=== PATIENT | male | born 1945 | race Caucasian/White ===

== ENCOUNTER → 2017-09-10 | Outpatient (CLI) | payer MEDICARE, OTHER ==
[~2017-09-10] MED LIST: ACE500 PO; ACET-2146 PO; ACET500L35 PO; ALL100 PO; ASC500 PO; ASCO-182 PO; ASCO500C9 PO; ASPI-1441 PO; ASPI-715 PO; CA C1TAB85 PO; CELE-1 PO; CETI-169 PO; CHOL200022 PO; DOC100 PO; DOCU-416 PO; FERR-1 PO; FLUT16SP20 NS; GLUC-129 PO; GLUC-198 PO; GLUC100026 PO; HCTZ25 PO; LISI-1 PO; LOR5/325 PO; LOR7.5/325 PO; LORA-941 PO; LORA10TA2 PO; LOSA50TA72 PO; MOD PO; MULT-1 PO; OMEG-11 PO; ONDA4TAB97 PO; OXYC-865 PO; PAN40 PO; PER PO; POTA10CA61 PO; POTA99TA12 PO; PRO25 PO; PYRI100T57 PO; RAN150 PO; TAM4 PO; VIT B6 PO; VITE400 PO; [UNRECOGNIZED DRUG - OTHER]; [UNRECOGNIZED DRUG - OTHER]
[2017-09-10 12:13] LABS: INR 2.97
== END ==
LOC: LAB 11:15
PROVIDERS: ATTEND Internal Medicine Cardiovascular Disease
DX: Z51.81 Encounter for therapeutic drug level monitoring (principal); I48.91 Unspecified atrial fibrillation
CPT/HCPCS: 36415; 85610

== ENCOUNTER → 2017-10-08 | Outpatient (CLI) | payer MEDICARE, OTHER ==
[2017-10-08 11:45] LABS: INR 2.47
== END ==
LOC: LAB 11:14
PROVIDERS: ATTEND Internal Medicine Cardiovascular Disease
DX: Z51.81 Encounter for therapeutic drug level monitoring (principal); Z79.01 Long term (current) use of anticoagulants; I48.0 Paroxysmal atrial fibrillation
CPT/HCPCS: 36415; 85610

== ENCOUNTER → 2017-10-23 | Outpatient (CLI) | payer MEDICARE, OTHER ==
[2017-10-23 10:47] LABS: INR 2.55
== END ==
LOC: LAB 10:04
PROVIDERS: ATTEND Internal Medicine Cardiovascular Disease
DX: Z51.81 Encounter for therapeutic drug level monitoring (principal); Z79.01 Long term (current) use of anticoagulants; I48.0 Paroxysmal atrial fibrillation
CPT/HCPCS: 36415; 85610

== ENCOUNTER → 2017-11-19 | Outpatient (CLI) | payer MEDICARE, OTHER ==
[2017-11-19 10:49] LABS: INR 3.33
== END ==
LOC: LAB 10:17
PROVIDERS: ATTEND Internal Medicine Cardiovascular Disease
DX: Z51.81 Encounter for therapeutic drug level monitoring (principal); Z79.01 Long term (current) use of anticoagulants; I48.0 Paroxysmal atrial fibrillation
CPT/HCPCS: 36415; 85610

== ENCOUNTER → 2017-12-03 | Outpatient (CLI) | payer MEDICARE, OTHER ==
[2017-12-03 14:45] LABS: INR 3.06
== END ==
LOC: LAB 14:19
PROVIDERS: ATTEND Internal Medicine Cardiovascular Disease
DX: Z51.81 Encounter for therapeutic drug level monitoring (principal); Z79.01 Long term (current) use of anticoagulants; I48.0 Paroxysmal atrial fibrillation
CPT/HCPCS: 36415; 85610

== ENCOUNTER → 2017-12-31 | Outpatient (CLI) | payer MEDICARE, OTHER ==
[2017-12-31 12:56] LABS: INR 3.08
== END ==
LOC: LAB 11:59
PROVIDERS: ATTEND Internal Medicine Cardiovascular Disease
DX: Z51.81 Encounter for therapeutic drug level monitoring (principal); Z79.01 Long term (current) use of anticoagulants; I48.91 Unspecified atrial fibrillation
CPT/HCPCS: 36415; 85610

== ENCOUNTER → 2018-01-21 | Outpatient (CLI) | payer MEDICARE, OTHER | LOC: LAB 12:59 | PROVIDERS: ATTEND Urology | DX: R97.20 Elevated prostate specific antigen [PSA] (principal) | CPT/HCPCS: 36415; 84153 ==

== ENCOUNTER → 2018-01-21 | Outpatient (CLI) | payer MEDICARE, OTHER ==
[2018-01-21 15:06] LABS: INR 2.88
== END ==
LOC: LAB 12:56
PROVIDERS: ATTEND Internal Medicine Cardiovascular Disease
DX: Z51.81 Encounter for therapeutic drug level monitoring (principal); Z79.01 Long term (current) use of anticoagulants; I48.91 Unspecified atrial fibrillation; R97.20 Elevated prostate specific antigen [PSA]
CPT/HCPCS: 36415; 84153; 85610

== ENCOUNTER → 2018-02-18 | Outpatient (CLI) | payer MEDICARE, OTHER ==
[2018-02-18 13:16] LABS: INR 2.08
== END ==
LOC: LAB 12:52
PROVIDERS: ATTEND Internal Medicine Cardiovascular Disease
DX: Z51.81 Encounter for therapeutic drug level monitoring (principal); Z79.01 Long term (current) use of anticoagulants; I48.0 Paroxysmal atrial fibrillation
CPT/HCPCS: 36415; 85610

== ENCOUNTER 2018-03-14 18:17 | Emergency (ER) | payer MEDICARE, OTHER ==
[2018-03-14] MEDS ORDERED: WARF5TAB23 PO (18:27)
--- NOTE | 2018-03-14 18:31 | ER Report ---
History and Physical Time Seen By MD: 18:30 Hx. of Stated Complaint: AFTER EATING STARTED HAVING CHEST PAIN, HEADACHE, BILAT JAW PAIN. TOOK ANTACIDS AT HOME WITH NO RELIEF. HPI/ROS CHIEF COMPLAINT: chest pain HISTORY OF PRESENT ILLNESS: This is a 72 year old male. He started having chest pain tonight. Substernal wtih radiation to jaw bilaterally. Had just finished eating out at a local [employer] restaurant. Took some antacids and belched, but only very mild relief. Had a splitting headache as well. He is on Warfarin for paroxysmal atrial fibrillation. His heart has been racing. He has seen a developer [employer] in the past and had a cardiac cath and stress test, but this was 17 years ago. Non-obstructive coronary artery disease at that time. He says that the pain has diminished a little more since coming to the hospital, but still present. He did have some nausea right after the pain started, but none now. Has mild shortness of breath with this. [place] fine prior to this, no recent illnesses. No cough or fevers. Allergies: Coded Allergies: Penicillins (Verified Allergy, Severe, ANAPHYLAXIS, 02/16/17) lisinopril (Verified Adverse Reaction, Intermediate, ?CAUSE OF PANCREATITIS, 02/16/17) Uncoded Allergies: hayfever (Allergy, Intermediate, UNKNOWN, 01/21/12) Home Meds Active Scripts Metoprolol Tartrate (METOPROLOL TARTRATE) 25 Mg Tablet, 12.5 MG PO BID, #30 TAB Prov:MARIE MCKAY MD 03/14/18 Reported Medications Warfarin Sodium (WARFARIN SODIUM) 5 Mg Tablet, 5 MG PO QDAY, TAB 03/14/18 Cholecalciferol (Vitamin D3) (Vitamin D-3) 2,000 Unit Tablet, 2000 UNIT PO BID 11/19/13 Amiloride/Hctz (AMILORIDE HCL-HCTZ 5-50 MG TAB) 1 Each Tab, 0.5 TAB PO QDAY, TAB 11/19/13 Losartan Potassium (LOSARTAN POTASSIUM) 50 Mg Tablet, 50 MG PO QDAY 11/19/13 Potassium Chloride (Micro-K) 10 Meq Capsule.sa, 20 MEQ PO DAILY, 0 Refills 07/30/11 Multivitamins W-Minerals/Lut (Centrum Silver Tablet) 1 Tab Tablet, 1 TAB PO DAILY, 0 Refills 07/30/11 Docosahexanoic Acid/Epa (Fish Oil 1,000 Mg Capsule) 1 Cap Capsule, 1 CAP PO DAILY, 0 Refills 07/30/11 Aspirin (Aspirin) 81 Mg Tablet.dr, 81 MG PO DAILY, 0 Refills 07/30/11 Fluticasone Propionate (Flonase) 16 Gm [place], 2 [place] NS DAILY, 0 Refills 07/30/11 Pantoprazole Sod (Protonix) 40 Mg Tabec, 40 MG PO QDAY, 0 Refills 07/30/11 Celecoxib (Celebrex) 200 Mg Capsule, 200 MG PO DAILY, 0 Refills 07/30/11 Allopurinol (Zyloprim) 100 Mg Tab, 300 MG PO DAILY, 0 Refills 07/30/11 Discontinued Reported Medications Acetaminophen 500 Mg Tab (ACETAMINOPHEN EXTRA STRENGTH) 500 Mg Tablet, 1000 MG PO QDAY, TAB 05/30/14 Glucosamine Sulfate 2KCL (GLUCOSAMINE) 1,000 Mg Tablet, 1000 MG PO QDAY 11/19/13 Cetirizine Hcl (Cetirizine Hcl) 10 Mg Tablet, 10 MG PO, 0 Refills 07/30/11 Discontinued Scripts Ondansetron Hcl (ZOFRAN) 4 Mg Tablet, 4 MG PO Q8H for Nausea, #12 TAB 0 Refills Prov:MAYURI ROBISON MD 08/18/16 Oxycodone Hcl/Acetaminophen (PERCOCET 5-325 MG TABLET) 1 Each Tablet, 1 EACH PO Q4-6H for PAIN, #10 TAB 0 Refills Prov:MAYURI ROBISON MD 08/18/16 Past Medical/Surgical History Patient has a past medical history of headaches, hypertension, obstructive sleep apnea, pneumonia, GERD, gastric ulcers, pancreatitis, kidney stones, osteoarthritis, fractures, back pain, actinic keratosis. Patient has a surgical history of eye surgery, back surgery, shoulder surgery, ESWL, cardiac catheterization. Hx Smoking: Yes Smoking Status: Former Smoker Exposure to Second Hand Smoke?: No Hx Substance Use Disorder: No Hx Alcohol Use: Yes Constitutional Vital Sign - Last 24 Hours 03/14/18 03/14/18 03/14/18 03/14/18 18:21 18:23 18:30 18:47 Pulse 105 110 Resp 18 19 B/P (MAP) 150/98 150/98 (115) 128/84 (99) Pulse Ox 92 88 O2 Delivery Room Air 03/14/18 03/14/18 03/14/18 03/14/18 19:00 19:17 19:30 19:47 Pulse 98 98 Resp 17 12 B/P (MAP) 130/94 (106) 115/78 (90) 03/14/18 03/14/18 03/14/18 03/14/18 20:00 20:05 20:15 20:30 Pulse 98 Resp 22 B/P (MAP) 112/73 (86) 116/79 (91) Pulse Ox 86 O2 Flow Rate 2.0 03/14/18 03/14/18 03/14/18 03/14/18 20:35 20:47 20:50 20:55 Pulse 96 Resp 6 B/P (MAP) 130/81 (97) 131/80 (97) 131/89 (103) Pulse Ox 93 03/14/18 03/14/18 03/14/18 03/14/18 20:58 21:00 21:05 21:20 Pulse 83 Resp 14 B/P (MAP) 116/81 (93) 112/82 (92) 114/79 (91) Pulse Ox 92 03/14/18 03/14/18 03/14/18 03/14/18 21:35 21:40 22:00 22:05 Pulse 81 78 Resp 18 9 B/P (MAP) 115/73 (87) 112/79 (90) Pulse Ox 91 92 03/14/18 03/14/18 03/14/18 03/14/18 22:20 22:35 22:40 22:50 Pulse 80 77 82 Resp 9 15 11 B/P (MAP) 109/76 (87) 115/81 (92) Pulse Ox 94 93 93 Physical Exam General Appearance: The patient is alert. No acute distress. Non-toxic in appearance. Eyes: Pupils are equal, round. No pallor, injection or icterus. ENT: Mucous membranes are moist. Normal oral mucosa. Posterior oropharynx is normal. Neck: Supple and non tender. Respiratory: Lungs are clear to auscultation. There are no retractions or accessory muscle use. Cardiovascular: Irregularly irregular, with some tachycardia. No murmurs, gallops or rubs. Normal capillary refill. No edema. Gastrointestinal: Abdomen is soft and non tender. Nondistended. Normal active bowel sounds. Neurological: Alert and oriented x3. No focal neurologic deficits Skin: Warm and dry. No rashes. DIFFERENTIAL DIAGNOSIS: After history and physical exam, differential diagnosis was considered for chest pain including but not limited to myocardial ischemia, pericarditis pulmonary embolus, chest wall pain, pleural inflammation and pulmonary infectious causes. Medical Decision Making Data Points Result Diagram: 03/14/18 18303/14/18 183 Laboratory Hematology Test 03/14/18 18:30 03/14/18 21:57 Red Blood Count 5.55 M/uL (4.00-5.60) Mean Corpuscular Volume 94.3 fL (80.0-96.0) Mean Corpuscular Hemoglobin 33.0 pg (26.0-33.0) Mean Corpuscular Hemoglobin Concent 35.0 g/dL (32.0-36.0) Red Cell Distribution Width 13.6 % (11.5-14.5) Mean Platelet Volume 9.9 fL (7.2-11.1) Neutrophils (%) (Auto) 54.6 % (39.4-72.5) Lymphocytes (%) (Auto) 28.7 % (17.6-49.6) Monocytes (%) (Auto) 12.6 % (4.1-12.4) Eosinophils (%) (Auto) 3.6 % (0.4-6.7) Basophils (%) (Auto) 0.5 % (0.3-1.4) Nucleated RBC Relative Count (auto) 0.1 /100WBC Neutrophils # (Auto) 4.6 K/uL (2.0-7.4) Lymphocytes # (Auto) 2.4 K/uL (1.3-3.6) Monocytes # (Auto) 1.1 K/uL (0.3-1.0) Eosinophils # (Auto) 0.3 K/uL (0.0-0.5) Basophils # (Auto) 0.0 K/uL (0.0-0.1) Nucleated RBC Absolute Count (auto) 0.01 K/uL Prothrombin Time 24.8 seconds (12.0-14.4) Prothromb Time International Ratio 2.19 D-Dimer Quantitative (PE/DVT) < 0.27 ug/ml (0-0.50) Sodium Level 141 mmol/L (137-145) Potassium Level 3.6 mmol/L (3.5-5.0) Chloride Level 104 mmol/L (98-107) Carbon Dioxide Level 22 mmol/L (22-30) Blood Urea Nitrogen 19 mg/dl (9-21) Creatinine 1.10 mg/dl (0.66-1.25) Glomerular Filtration Rate Calc > 60.0 Random Glucose 119 mg/dl (75-110) Calcium Level 10.6 mg/dl (8.4-10.2) Total Bilirubin 0.7 mg/dl (0.2-1.3) Aspartate Amino Transf (AST/SGOT) 49 U/L (0-35) Alanine Aminotransferase (ALT/SGPT) 47 U/L (0-56) Alkaline Phosphatase 98 U/L (0-126) B-Type Natriuretic Peptide 16 pg/ml (0-100) Total Protein 8.2 g/dl (6.3-8.2) Albumin 4.7 g/dl (3.5-5.0) Troponin I < 0.012 ng/ml Chemistry Test 03/14/18 18:30 03/14/18 21:57 White Blood Count 8.5 k/uL (4.5-11.0) Red Blood Count 5.55 M/uL (4.00-5.60) Hemoglobin 18.3 g/dL (14.0-18.0) Hematocrit 52.3 % (42.0-52.0) Mean Corpuscular Volume 94.3 fL (80.0-96.0) Mean Corpuscular Hemoglobin 33.0 pg (26.0-33.0) Mean Corpuscular Hemoglobin Concent 35.0 g/dL (32.0-36.0) Red Cell Distribution Width 13.6 % (11.5-14.5) Platelet Count 151 K/uL (150-450) Mean Platelet Volume 9.9 fL (7.2-11.1) Neutrophils (%) (Auto) 54.6 % (39.4-72.5) Lymphocytes (%) (Auto) 28.7 % (17.6-49.6) Monocytes (%) (Auto) 12.6 % (4.1-12.4) Eosinophils (%) (Auto) 3.6 % (0.4-6.7) Basophils (%) (Auto) 0.5 % (0.3-1.4) Nucleated RBC Relative Count (auto) 0.1 /100WBC Neutrophils # (Auto) 4.6 K/uL (2.0-7.4) Lymphocytes # (Auto) 2.4 K/uL (1.3-3.6) Monocytes # (Auto) 1.1 K/uL (0.3-1.0) Eosinophils # (Auto) 0.3 K/uL (0.0-0.5) Basophils # (Auto) 0.0 K/uL (0.0-0.1) Nucleated RBC Absolute Count (auto) 0.01 K/uL Prothrombin Time 24.8 seconds (12.0-14.4) Prothromb Time International Ratio 2.19 D-Dimer Quantitative (PE/DVT) < 0.27 ug/ml (0-0.50) Glomerular Filtration Rate Calc > 60.0 Calcium Level 10.6 mg/dl (8.4-10.2) Total Bilirubin 0.7 mg/dl (0.2-1.3) Aspartate Amino Transf (AST/SGOT) 49 U/L (0-35) Alanine Aminotransferase (ALT/SGPT) 47 U/L (0-56) Alkaline Phosphatase 98 U/L (0-126) B-Type Natriuretic Peptide 16 pg/ml (0-100) Total Protein 8.2 g/dl (6.3-8.2) Albumin 4.7 g/dl (3.5-5.0) Troponin I < 0.012 ng/ml Coagulation Test 03/14/18 18:30 Prothrombin Time 24.8 seconds Prothromb Time International Ratio 2.19 D-Dimer Quantitative (PE/DVT) < 0.27 ug/ml EKG/Imaging EKG Interpretation 12 lead EKG: At 1825 hrs. Rhythm: atrial fibrillation, rapid rate of 116 [place]: normal QRS: right bundle branch block ST segments: some depression of ST segments in V1-V3 12 lead EKG: At 2151 hrs. Rhythm: Sinus rhythm, normal, rate 80 [place]: normal QRS: Right bundle branch block ST segments: No ST segment L normalities Imaging Examination: CHEST PA AND LAT Comparison: 02/16/2017 and earlier. History: Chest Pain Findings: Cardiac and hilar contour size is within normal limits and unchanged. No new or enlarging consolidation, nodule, or evidence of acute peribronchial inflammation. No pneumothorax, edema, or effusion. Mild degenerative change throughout the osseous structures. No acute osseous abnormality. IMPRESSION: Unchanged chest with no evidence of acute cardiopulmonary disease. Report Dictated By: Sujit Sharpe MD at 03/14/2018 7:26 PM ED Course/Re-evaluation Clinical Indication for ER IV: IV Access ED Course The patient came down to a normal rhythm and a sinus rhythm after metoprolol was given. Aspirin helped a little bit with a headache. Gave him 2 mg of morphine IV later and helped his chest pain and headache. After the atrial fibrillation resolved, the chest pain went away. 2 troponins done 3 hours apart were negative. Discussed risks of coronary artery disease with the patient. At this point they would prefer to return home and follow up with their developer [employer], Dr. Louis, in the next week or so. Decision to Disposition Date: Mar 14, 2018 Decision to Disposition Time: 22:42 Depart Departure Latest Vital Signs Vital Signs Date Time Temp Pulse Resp B/P (MAP) Pulse Ox O2 Delivery O2 Flow Rate FiO2 03/14/18 22:50 82 11 93 03/14/18 22:40 115/81 (92) 03/14/18 20:15 2.0 03/14/18 18:21 Room Air Impression: Primary Impression: Chest pain Additional Impression: PAROXYSMAL ATRIAL FIBRILLATION Condition: Improved Disposition: HOME OR SELF-CARE Referrals: CALLUM FLEMING DO (PCP) New Scripts Metoprolol Tartrate (METOPROLOL TARTRATE) 25 Mg Tablet 12.5 MG PO BID, #30 TAB Prov: MARIE MCKAY MD 03/14/18 Patient Instructions: A-fib (Atrial Fibrillation) (ED), Chest Pain (ED) Additional Instructions: Your atrial fibrillation and pain improved and we did not find any other problems. Your labs were negative tonight as well. We would like to have you start on Metroprolol Tartrate 25mg tablets, 1/2 tablet twice a day for now and have you follow-up with Dr. Louis as planned. No heavy physical activity until you see him. Return to the ER for further evaluation should you have further pain. Problem Qualifiers Primary Impression: Chest pain Chest pain type: unspecified Qualified Codes: R07.9 - Chest pain, unspecified MARIE MCKAY MD Mar 14, 2018 18:31
[2018-03-14] MEDS ORDERED: ASPIRIN 81 MG CHEW PO ONE (18:45)
[2018-03-14] MEDS ORDERED: METOPROLOL TART 5 MG/5 ML VIAL IVP ONE (18:45)
[2018-03-14] MEDS ORDERED: PANTOPRAZOLE SOD 40 MG IV VIAL IVP ONE (18:45)
[2018-03-14] MEDS ORDERED: ONDANSETRON 4 MG/2 ML VIAL IVP ONE (18:45)
[2018-03-14 18:51] LABS: PLATELET COUNT, AUTOMATED 151 K/uL (150-450)
[2018-03-14 19:00] LABS: INR 2.19
--- NOTE | 2018-03-14 19:10 | EKG ---
[place] [facility] [place] NAME: Coleen CABRAL : [id number] MR: [id number] V: [id number] EXAM DATE: ORDERING PHYSICIAN: MARIE MCKAY TECHNOLOGIST: Test Reason : chest pain Blood Pressure : / mmHG Vent. Rate : 116 BPM Atrial Rate : 116 BPM P-R Int : 000 ms QRS Dur : 134 ms QT Int : 324 ms P-R-T Axes : 000 107 038 degrees QTc Int : 450 ms Atrial fibrillation with rapid ventricular response Right bundle branch block Cannot rule out Inferior infarct , age undetermined Abnormal ECG When compared with ECG of 16-FEB-2017 18:15, Atrial fibrillation has replaced Wide QRS rhythm Confirmed by SAMARA PEREZ ([id number]) on 03/14/2018 9:23:52 PM Referred By: Confirmed By:SAMARA PEREZ
--- NOTE | 2018-03-14 19:32 | RADIOLOGY IMAGING REPORT ---
[place] [facility] [place]: Coleen Wall : 1945 MR: [id number] V: [id number] EXAM DATE: ORDERING PHYSICIAN: MARIE MCKAY TECHNOLOGIST: Location: [facility] - [place] Patient: Coleen Wall : 1945 Visit/Account:[id number] Date of Sevice: 03/14/2018 Examination: CHEST PA AND LAT Comparison: 02/16/2017 and earlier. History: Chest Pain Findings: Cardiac and hilar contour size is within normal limits and unchanged. No new or enlarging c onsolidation, nodule, or evidence of acute peribronchial inflammation. No pneumothorax, edema, or eff usion. Mild degenerative change throughout the osseous structures. No acute osseous abnormality. IMPRESSION: Unchanged chest with no evidence of acute cardiopulmonary disease. Report Dictated By: Sujit Sharpe MD at 03/14/2018 7:26 PM Report E-Signed By: Sujit Sharpe MD at 03/14/2018 7:28 PM [id number]
[2018-03-14] MEDS ORDERED: MORPHINE 2 MG/ML SYR IVP ONE (20:15)
[2018-03-14 22:40] VITALS: BP 115/81
[2018-03-14] MEDS ORDERED: METOPROLOL TART 50 MG TAB PO ONE (22:40)
[2018-03-14] MEDS ORDERED: METO25TA93 PO (22:44)
--- NOTE | 2018-03-14 22:53 | EKG ---
FACILITY: [facility] PATIENT NAME: Coleen CABRAL : [id number] MR: [id number] V: [id number] EXAM DATE: ORDERING PHYSICIAN: MARIE MCKAY TECHNOLOGIST: LEELEE Test Reason : CHEST PAIN Blood Pressure : / mmHG Vent. Rate : 080 BPM Atrial Rate : 080 BPM P-R Int : 184 ms QRS Dur : 140 ms QT Int : 398 ms P-R-T Axes : 066 086 039 degrees QTc Int : 459 ms Normal sinus rhythm Right bundle branch block Cannot rule out Inferior infarct (cited on or before 14-MAR-2018) Abnormal ECG When compared with ECG of 14-MAR-2018 18:25, Sinus rhythm has replaced Atrial fibrillation T wave inversion no longer evident in Anterior leads Confirmed by SAMARA PEREZ ([id number]) on 03/15/2018 6:33:52 AM Referred By: Confirmed By:SAMARA PEREZ
== END 2018-03-14 22:51 | disposition home or self-care (01) ==
LOC: ER 18:34
DX: I48.0 Paroxysmal atrial fibrillation (principal); R51 Headache; I10 Essential (primary) hypertension; G47.33 Obstructive sleep apnea (adult) (pediatric); K21.9 Gastro-esophageal reflux disease without esophagitis; Z87.891 Personal history of nicotine dependence; Z79.899 Other long term (current) drug therapy; R07.9 Chest pain, unspecified; R06.02 Shortness of breath
CPT/HCPCS: 36415; 71046; 83880; 84484; 85025; 85379; 85610; 93005; 96374; 96375; 99284; A9270; C9113; J2270; J2405; J3490; 82040; 82247; 82310; 82374; 82435; 82565; 82947; 84075; 84132; 84155; 84295; 84450; 84460; 84520

== ENCOUNTER → 2018-04-02 | Outpatient (CLI) | payer MEDICARE, OTHER ==
[~2018-04-02] MED LIST changes: +COL625PT PO; +METO25TA93 PO; +SIMV5TAB60 PO; +WARF5TAB23 PO
--- NOTE | 2018-04-02 13:03 | EKG ---
FACILITY: [facility] PATIENT NAME: Coleen CABRAL : [id number] MR: [id number] V: [id number] EXAM DATE: ORDERING PHYSICIAN: CALLUM FLEMING TECHNOLOGIST: MARGARITO Brooks Reason : AFIB Blood Pressure : / mmHG Vent. Rate : 074 BPM Atrial Rate : 074 BPM P-R Int : 174 ms QRS Dur : 146 ms QT Int : 420 ms P-R-T Axes : 055 075 040 degrees QTc Int : 466 ms Normal sinus rhythm Right bundle branch block Abnormal ECG When compared with ECG of 14-MAR-2018 21:51, No significant change was found Confirmed by ERICKA CATHERINE ([id number]) on 04/02/2018 7:58:11 PM Referred By: BERNADETTE Confirmed By:ERICKA CATHERINE
== END ==
LOC: RESP 12:42
PROVIDERS: ATTEND Family Medicine
DX: I45.10 Unspecified right bundle-branch block (principal); R94.31 Abnormal electrocardiogram [ECG] [EKG]
CPT/HCPCS: 93005

== ENCOUNTER 2018-04-05 02:31 | Emergency (ER) | payer MEDICARE, OTHER ==
[~2018-04-05 02:31] MED LIST changes: -COL625PT PO; -SIMV5TAB60 PO
--- NOTE | 2018-04-05 02:43 | ER Report ---
History and Physical Time Seen By MD: 02:43 Hx. of Stated Complaint: PT REPORTS BEING DIZZY AND MAYBE HAVING AFIB AGAIN. HPI/ROS CHIEF COMPLAINT: atrial fibrillation, dizziness HISTORY OF PRESENT ILLNESS: This is a 72 year old male. He was having racing heart tonight as well as dizziness. He has atrial fibrillation on Warfarin therapy. He has an appointment later today with cardiology for an echocardiogram and further workup to decide on whether he needs an ablation or to be put on Multaq. Some mild shortness of breath and some chest pressure with the heart racing. Tried to relax and see if his heart would slow down but this was ineffective. No nausea or vomiting. No musculoskeletal pain Allergies: Coded Allergies: Penicillins (Verified Allergy, Severe, ANAPHYLAXIS, 04/05/18) lisinopril (Verified Adverse Reaction, Intermediate, ?CAUSE OF PANCREATITIS, 04/05/18) Uncoded Allergies: hayfever (Allergy, Intermediate, UNKNOWN, 01/21/12) Home Meds Reported Medications Colesevelam Hcl (WELCHOL) 625 Mg Tablet, 625 MG PO PRN Y for DIARRHEA 04/05/18 Simvastatin (SIMVASTATIN) 5 Mg Tablet, 5 MG PO HS, TAB 04/05/18 Warfarin Sodium (WARFARIN SODIUM) 5 Mg Tablet, 5 MG PO QDAY, TAB 03/14/18 Cholecalciferol (Vitamin D3) (Vitamin D-3) 2,000 Unit Tablet, 2000 UNIT PO BID 11/19/13 Amiloride/Hctz (AMILORIDE HCL-HCTZ 5-50 MG TAB) 1 Each Tab, 0.5 TAB PO QDAY, TAB 11/19/13 Losartan Potassium (LOSARTAN POTASSIUM) 50 Mg Tablet, 50 MG PO QDAY 11/19/13 Potassium Chloride (Micro-K) 10 Meq Capsule.sa, 20 MEQ PO DAILY, 0 Refills 07/30/11 Multivitamins W-Minerals/Lut (Centrum Silver Tablet) 1 Tab Tablet, 1 TAB PO DAILY, 0 Refills 07/30/11 Docosahexanoic Acid/Epa (Fish Oil 1,000 Mg Capsule) 1 Cap Capsule, 1 CAP PO DAILY, 0 Refills 07/30/11 Aspirin (Aspirin) 81 Mg Tablet.dr, 81 MG PO DAILY, 0 Refills 07/30/11 Fluticasone Propionate (Flonase) 16 Gm [employer] [place], 2 [place] NS DAILY, 0 Refills 07/30/11 Pantoprazole Sod (Protonix) 40 Mg Tabec, 40 MG PO QDAY, 0 Refills 07/30/11 Celecoxib (Celebrex) 200 Mg Capsule, 200 MG PO DAILY, 0 Refills 07/30/11 Allopurinol (Zyloprim) 100 Mg Tab, 300 MG PO DAILY, 0 Refills 07/30/11 Discontinued Scripts Metoprolol Tartrate (METOPROLOL TARTRATE) 25 Mg Tablet, 12.5 MG PO BID, #30 TAB Prov:MARIE MCKAY MD 03/14/18 Reviewed Nurses Notes: Yes Hx Smoking: Yes Smoking Status: Former Smoker Exposure to Second Hand Smoke?: No Hx Substance Use Disorder: No Hx Alcohol Use: Yes Constitutional Vital Sign - Last 24 Hours 04/05/18 04/05/18 04/05/18 04/05/18 02:36 02:36 02:45 02:46 Temp 97.9 Pulse 88 87 Resp 18 8 B/P (MAP) 133/84 133/84 (100) 131/89 (103) Pulse Ox 89 93 O2 Delivery Room Air 04/05/18 04/05/18 04/05/18 04/05/18 03:00 03:01 03:15 03:16 Pulse 90 86 Resp 16 17 B/P (MAP) 122/86 (98) 113/81 (92) Pulse Ox 91 91 04/05/18 04/05/18 04/05/18 04/05/18 03:23 03:28 03:43 03:53 Pulse 85 86 88 96 Resp 12 10 13 Pulse Ox 92 92 93 04/05/18 04/05/18 04/05/18 03:58 04:09 04:25 Pulse 88 Resp 15 B/P (MAP) 109/77 (88) Pulse Ox 94 O2 Flow Rate 2.5 Physical Exam General Appearance: The patient is alert. No acute distress. Respiratory: Lungs are clear to auscultation. Cardiovascular: Mild tachycardia, irregularly irregular rhythm. No murmurs, gallops or rubs. Normal capillary refill. No edema. Gastrointestinal: Abdomen is soft and non tender. Nondistended. Normal active bowel sounds. Neurological: Alert and oriented x3. Cranial nerves II through XII show no acute deficits on my exam. No focal neurologic deficits in the extremities. Skin: Warm and dry. No rashes. Musculoskeletal: No tenderness in palpation of the cervical, thoracic and lumbar spine. DIFFERENTIAL DIAGNOSIS: After history and physical exam, differential diagnosis was considered for heart racing, likely due to his atrial fibrillation causing some mild symptoms with a rapid ventricular rate. Medical Decision Making Data Points Result Diagram: 04/05/18 0258 04/05/18 0258 Laboratory Hematology Test 04/05/18 02:55 04/05/18 02:58 Prothrombin Time 25.2 seconds (12.0-14.4) Prothromb Time International Ratio 2.24 Red Blood Count 4.94 M/uL (4.00-5.60) Mean Corpuscular Volume 94.1 fL (80.0-96.0) Mean Corpuscular Hemoglobin 33.7 pg (26.0-33.0) Mean Corpuscular Hemoglobin Concent 35.8 g/dL (32.0-36.0) Red Cell Distribution Width 13.3 % (11.5-14.5) Mean Platelet Volume 9.2 fL (7.2-11.1) Neutrophils (%) (Auto) 48.9 % (39.4-72.5) Lymphocytes (%) (Auto) 32.2 % (17.6-49.6) Monocytes (%) (Auto) 14.0 % (4.1-12.4) Eosinophils (%) (Auto) 4.1 % (0.4-6.7) Basophils (%) (Auto) 0.8 % (0.3-1.4) Nucleated RBC Relative Count (auto) 0.1 /100WBC Neutrophils # (Auto) 4.3 K/uL (2.0-7.4) Lymphocytes # (Auto) 2.8 K/uL (1.3-3.6) Monocytes # (Auto) 1.2 K/uL (0.3-1.0) Eosinophils # (Auto) 0.4 K/uL (0.0-0.5) Basophils # (Auto) 0.1 K/uL (0.0-0.1) Nucleated RBC Absolute Count (auto) 0.01 K/uL Sodium Level 139 mmol/L (137-145) Potassium Level 3.3 mmol/L (3.5-5.0) Chloride Level 103 mmol/L (98-107) Carbon Dioxide Level 25 mmol/L (22-30) Blood Urea Nitrogen 17 mg/dl (9-21) Creatinine 0.90 mg/dl (0.66-1.25) Glomerular Filtration Rate Calc > 60.0 Random Glucose 158 mg/dl (75-110) Calcium Level 9.6 mg/dl (8.4-10.2) Total Bilirubin 0.5 mg/dl (0.2-1.3) Aspartate Amino Transf (AST/SGOT) 30 U/L (0-35) Alanine Aminotransferase (ALT/SGPT) 34 U/L (0-56) Alkaline Phosphatase 137 U/L (0-126) Troponin I < 0.012 ng/ml Total Protein 7.4 g/dl (6.3-8.2) Albumin 4.2 g/dl (3.5-5.0) Chemistry Test 04/05/18 02:55 04/05/18 02:58 Prothrombin Time 25.2 seconds (12.0-14.4) Prothromb Time International Ratio 2.24 White Blood Count 8.7 k/uL (4.5-11.0) Red Blood Count 4.94 M/uL (4.00-5.60) Hemoglobin 16.7 g/dL (14.0-18.0) Hematocrit 46.6 % (42.0-52.0) Mean Corpuscular Volume 94.1 fL (80.0-96.0) Mean Corpuscular Hemoglobin 33.7 pg (26.0-33.0) Mean Corpuscular Hemoglobin Concent 35.8 g/dL (32.0-36.0) Red Cell Distribution Width 13.3 % (11.5-14.5) Platelet Count 133 K/uL (150-450) Mean Platelet Volume 9.2 fL (7.2-11.1) Neutrophils (%) (Auto) 48.9 % (39.4-72.5) Lymphocytes (%) (Auto) 32.2 % (17.6-49.6) Monocytes (%) (Auto) 14.0 % (4.1-12.4) Eosinophils (%) (Auto) 4.1 % (0.4-6.7) Basophils (%) (Auto) 0.8 % (0.3-1.4) Nucleated RBC Relative Count (auto) 0.1 /100WBC Neutrophils # (Auto) 4.3 K/uL (2.0-7.4) Lymphocytes # (Auto) 2.8 K/uL (1.3-3.6) Monocytes # (Auto) 1.2 K/uL (0.3-1.0) Eosinophils # (Auto) 0.4 K/uL (0.0-0.5) Basophils # (Auto) 0.1 K/uL (0.0-0.1) Nucleated RBC Absolute Count (auto) 0.01 K/uL Glomerular Filtration Rate Calc > 60.0 Calcium Level 9.6 mg/dl (8.4-10.2) Total Bilirubin 0.5 mg/dl (0.2-1.3) Aspartate Amino Transf (AST/SGOT) 30 U/L (0-35) Alanine Aminotransferase (ALT/SGPT) 34 U/L (0-56) Alkaline Phosphatase 137 U/L (0-126) Troponin I < 0.012 ng/ml Total Protein 7.4 g/dl (6.3-8.2) Albumin 4.2 g/dl (3.5-5.0) Coagulation Test 04/05/18 02:55 Prothrombin Time 25.2 seconds Prothromb Time International Ratio 2.24 EKG/Imaging EKG Interpretation 12 lead EKG: Rhythm: Atrial fibrillation, rate 88 [place]: normal QRS: Right bundle branch block ED Course/Re-evaluation Clinical Indication for ER IV: IV Access ED Course Labs unremarkable. Patient improved with 25 mg oral metoprolol. He is discharged home and will follow-up with cardiology later this morning where he will see them get an echocardiogram done Decision to Disposition Date: Apr 05, 2018 Decision to Disposition Time: 03:59 Depart Departure Latest Vital Signs Vital Signs Date Time Temp Pulse Resp B/P (MAP) Pulse Ox O2 Delivery O2 Flow Rate FiO2 04/05/18 04:25 2.5 04/05/18 04:09 109/77 (88) 04/05/18 03:58 88 15 94 04/05/18 02:36 97.9 Room Air Impression: Primary Impression: Atrial fibrillation Additional Impression: Dizziness Condition: Improved Disposition: HOME OR SELF-CARE Referrals: CALLUM FLEMING DO (PCP) Patient Instructions: A-fib (Atrial Fibrillation) (ED), Dizziness (ED) Additional Instructions: No changes to medications at this time Follow-up with cardiology later this morning at 1100 as planned. Problem Qualifiers Primary Impression: Atrial fibrillation Atrial fibrillation type: chronic Qualified Codes: I48.2 - Chronic atrial fibrillation MARIE MCKAY MD Apr 05, 2018 02:43
[2018-04-05] MEDS ORDERED: SIMV5TAB60 PO (02:48)
[2018-04-05] MEDS ORDERED: COL625PT PO (02:49)
--- NOTE | 2018-04-05 03:00 | EKG ---
FACILITY: [facility] PATIENT NAME: Coleen CABRAL : [id number] MR: [id number] V: [id number] EXAM DATE: ORDERING PHYSICIAN: MARIE MCKAY TECHNOLOGIST: LOYDA Brooks Reason : Blood Pressure : / mmHG Vent. Rate : 088 BPM Atrial Rate : 178 BPM P-R Int : 000 ms QRS Dur : 150 ms QT Int : 424 ms P-R-T Axes : 000 090 -06 degrees QTc Int : 513 ms Atrial fibrillation Right bundle branch block Abnormal ECG When compared with ECG of 02-APR-2018 12:46, Atrial fibrillation has replaced Sinus rhythm Confirmed by PERCY LIANG ([id number]) on 04/05/2018 6:07:50 AM Referred By: Confirmed By:PERCY LIANG
[2018-04-05 03:09] LABS: PLATELET COUNT, AUTOMATED 133 K/uL (150-450)
[2018-04-05] MEDS ORDERED: METOPROLOL TART 50 MG TAB PO ONE (03:15)
[2018-04-05 03:47] LABS: INR 2.24
[2018-04-05 04:09] VITALS: BP 109/77
== END 2018-04-05 04:22 | disposition home or self-care (01) ==
LOC: ER 02:52
DX: I48.2 Chronic atrial fibrillation (principal); R42 Dizziness and giddiness; I45.10 Unspecified right bundle-branch block; R94.31 Abnormal electrocardiogram [ECG] [EKG]
CPT/HCPCS: 84484; 85025; 85610; 93005; 99283; A9270; 82040; 82247; 82310; 82374; 82435; 82565; 82947; 84075; 84132; 84155; 84295; 84450; 84460; 84520

== ENCOUNTER → 2018-04-15 | Outpatient (CLI) | payer MEDICARE, OTHER ==
[~2018-04-15] MED LIST changes: +COL625PT PO; +SIMV5TAB60 PO
[2018-04-15 13:26] LABS: INR 2.4
== END ==
LOC: LAB 12:34
PROVIDERS: ATTEND Internal Medicine Cardiovascular Disease
DX: Z51.81 Encounter for therapeutic drug level monitoring (principal); Z79.01 Long term (current) use of anticoagulants; I48.0 Paroxysmal atrial fibrillation
CPT/HCPCS: 36415; 85610

== ENCOUNTER → 2018-05-13 | Outpatient (CLI) | payer MEDICARE, OTHER ==
[~2018-05-13] MED LIST changes: -CHOL200022 PO; +CHOL200085 PO; -LOSA50TA72 PO; +LOSA50TA74 PO
[2018-05-13 11:41] LABS: INR 2.01
== END ==
LOC: LAB 11:03
PROVIDERS: ATTEND Internal Medicine Cardiovascular Disease
DX: Z51.81 Encounter for therapeutic drug level monitoring (principal); I48.0 Paroxysmal atrial fibrillation; Z79.01 Long term (current) use of anticoagulants
CPT/HCPCS: 36415; 85610

== ENCOUNTER → 2018-05-25 | Outpatient (REF) | payer MEDICARE, OTHER | LOC: ZZSENDIN 12:00 | PROVIDERS: ATTEND Urology | DX: C67.9 Malignant neoplasm of bladder, unspecified (principal) | CPT/HCPCS: 88305; 88344 ==

== ENCOUNTER 2018-06-02 10:54 | Outpatient (RCR) | payer MEDICARE, OTHER ==
[2018-06-02 11:11] LABS: PLATELET COUNT, AUTOMATED 159 K/uL (150-450)
[2018-06-04] MEDS ORDERED: IOPAMIDOL 76% 75 ML INFUS BTL 75 ML ONE (07:27)
--- NOTE | 2018-06-04 08:00 | RADIOLOGY IMAGING REPORT ---
FACILITY: [facility] PATIENT NAME: Coleen Wall : 1945 MR: [id number] V: [id number] EXAM DATE: ORDERING PHYSICIAN: MEG IYER TECHNOLOGIST: Location: [facility] [place] Patient: Coleen Wall : 1945 Visit/Account:[id number] Date of Sevice: 06/04/2018 CHEST, 2 View History: COPD. New diagnosis of prostate carcinoma. COMPARISON: 03/14/2018 FINDINGS: Heart size is normal. Central pulmonary vasculature is nondistended. Thoracic aorta is normal size. Lungs are hyperexpanded, but clear of infiltrate and atelectasis. No pleural fluid collections or pne umothorax. There are mild degenerative disc changes in the midthoracic spine. Radiopaque sutures project on the left glenohumeral area. No blastic or lytic bone lesions are observed. IMPRESSION: 1. No radiographic evidence of an acute chest process or metastatic disease. 2. Lung hyperinflation is compatible with known COPD. Report Dictated By: Erika Ca MD at 06/04/2018 7:53 AM Report E-Signed By: Erika Ca MD at 06/04/2018 7:56 AM WSN:[id number]
--- NOTE | 2018-06-04 10:49 | RADIOLOGY IMAGING REPORT ---
FACILITY: [facility] - [place] PATIENT NAME: Coleen Wall : 1945 MR: [id number] V: [id number] EXAM DATE: ORDERING PHYSICIAN: MEG IYER TECHNOLOGIST: Location: [facility] [place] Patient: Coleen Wall : 1945 Visit/Account:[id number] Date of Sevice: 06/04/2018 ABDOMEN/PELVIS W/WO CONTRAST HISTORY: Prostate cancer TECHNIQUE: Axial images acquired through the abdomen/pelvis both with and without IV contrast.. Hansa nal and sagittal reformatting also performed.Dose Lowering Technique One of the following dose optimization techniques was utilized in the performance of this exam: Autom ated exposure control; adjustment of the mA and/or kV according to the patient's size; or use of an i terative reconstruction technique. Specific details can be referenced in the facility's radiology C T exam operational policy. CONTRAST: 75 mL Isovue-370 COMPARISON: CT abdomen and pelvis August 18, 2016 FINDINGS: Visualized lung bases: Negative. Hepatobiliary: There are postsurgical changes from a prior cholecystectomy Spleen: Negative. Adrenals: There is mild thickening the right adrenal gland unchanged Pancreas: Negative. Kidneys ureters and bladder: There are small nonobstructing calculi in both kidneys measuring up to 3 mm on the right and up to 4 mm on the left. Is a lobular contour to both kidneys. Tiny subcentimet er hypodensities may represent cysts although are too small to characterize Genitalia: Prostate gland is mildly enlarged heterogeneous containing coarse calcifications and impi nges upon the floor the urinary bladder. There is haziness of the periprosthetic fat planes along th e inferior aspect which appears new when compared the prior study. There Is a small diverticulum pro jecting along the posterior left side the bladder GI: Negative. Vessels/spaces/nodes: There mild atherosclerotic calcifications in the abdominal aorta and branch ve ssels Bones/soft tissues: There is a small right inguinal hernia containing fat. There is a small periumb ilical hernia containing fat . There are spondylotic changes of the lumbar spine with a grade 1 ant erior listhesis of L4 with respect L5 similar to the prior study. No aggressive appearing bone lesio ns are seen Additional findings: None pertinent. IMPRESSION: Postsurgical changes from a cholecystectomy Nonobstructing renal calculi bilaterally Prostate gland is mildly enlarged, heterogeneous and contains coarse calcination occasions impinging upon the floor the bladder. There is haziness of the periprosthetic fat planes along the inferior as pect which appears new when compared the prior study. Given the clinical history of prostate cancer clinical correlation needed Small bladder diverticulum Small right inguinal hernia containing fat Small periumbilical hernia containing fat Report Dictated By: Tana Hilton MD at 06/04/2018 10:00 AM Report E-Signed By: Tana Hilton MD at 06/04/2018 10:45 AM WSN:[email or web address]
--- NOTE | 2018-06-04 14:11 | RADIOLOGY IMAGING REPORT ---
FACILITY: [facility] - [place] PATIENT NAME: Coleen Wall : 1945 MR: [id number] V: [id number] EXAM DATE: ORDERING PHYSICIAN: MEG IYER TECHNOLOGIST: Location: [facility] Patient: Coleen Wall : 1945 Visit/Account:[id number] Date of Sevice: 06/04/2018 WHOLE BODY BONE SCAN HISTORY: Prostate cancer TECHNIQUE: 21.6 mCi technetium 99m HDP was injected intravenously. Delayed anterior and posterior wh ole body gamma camera images were obtained. Additional gamma camera images: Right left lateral skull COMPARISON: None. FINDINGS: Bone radiotracer activity: There is increased isotope uptake seen in the lower half of the cervical spine. Degenerative type uptake is noted over the shoulders the wrists the knees and the right ankle . Extraosseous radiotracer activity: Unremarkable. Renal and urinary collecting system activity: Unremarkable. IMPRESSION: Increased ASP uptake seen over the lower half the cervical spine. This could be degenerative or post operative in nature. Plain radiograph of the cervical spine may be helpful for further evaluation Multifocal areas of degenerative type uptake Report Dictated By: Tana Hilton MD at 06/04/2018 2:05 PM Report E-Signed By: Tana Hilton MD at 06/04/2018 2:07 PM WSN:[email or web address]
[2018-06-15] MEDS ORDERED: METO25TA93 PO (09:18)
[2018-06-15] MEDS ORDERED: ACET-1966 PO (09:18)
[2018-06-15] MEDS ORDERED: LORA10CA3 PO (09:18)
[2018-06-15] MEDS ORDERED: UBID100C48 PO (09:18)
[2018-06-15] MEDS ORDERED: TURM1CAP PO (09:18)
[2018-06-15] MEDS ORDERED: PREG100C44 PO (09:18)
[2018-06-17] MEDS ORDERED: LUPRON IM (11:30)
[2018-06-17] MEDS ORDERED: BICA50TA13 PO (11:30)
[2018-06-17] MEDS ORDERED: ACET650T40 PO (14:36)
[2018-06-17] MEDS ORDERED: POTA20TA94 PO (14:36)
[2018-06-17] MEDS ORDERED: ALL300 PO (14:36)
[2018-06-17] MEDS ORDERED: CHOL500025 PO (14:36)
== END 2018-06-04 18:00 | disposition home or self-care (01) ==
LOC: CT 10:54
PROVIDERS: ATTEND Urology
DX: C61 Malignant neoplasm of prostate (principal); N20.0 Calculus of kidney; K40.90 Unilateral inguinal hernia, without obstruction or gangrene, not specified as recurrent; K42.9 Umbilical hernia without obstruction or gangrene; Z90.49 Acquired absence of other specified parts of digestive tract; N40.0 Benign prostatic hyperplasia without lower urinary tract symptoms
CPT/HCPCS: 36415; 71046; 74178; 78306; 82248; 85025; A9503; Q9967; 82040; 82247; 82310; 82374; 82435; 82565; 82947; 84075; 84132; 84155; 84295; 84450; 84460; 84520

== ENCOUNTER → 2018-06-11 | Outpatient (CLI) | payer MEDICARE, OTHER ==
--- NOTE | 2018-06-11 17:26 | RADIOLOGY IMAGING REPORT ---
FACILITY: [facility] - [place] PATIENT NAME: Coleen Wall : 1945 MR: [id number] V: [id number] EXAM DATE: ORDERING PHYSICIAN: MEG IYER TECHNOLOGIST: Location: [facility] Patient: Coleen Wall : 1945 Visit/Account:[id number] Date of Sevice: 06/11/2018 CERVICAL SPINE 2 OR 3 VIEW Indication: Pain, history of prostate cancer, Comparison: Bone scan 06/04/2018 Findings: The prevertebral soft tissues are within normal limits. The vertebral body heights are well maintained. There is mild diffuse multilevel degenerative disc space narrowing. Disc space narrowing is greatest at C3-4 and C4-5. No spondylolisthesis is identified. No aggressive bone lesions are identified. Bila teral facet arthropathy is present IMPRESSION: 1. No evidence of prostatic metastases on plain film.. If clinically indicated, CT or MRI may be of b enefit Report Dictated By: David Lopez at 06/11/2018 5:20 PM Report E-Signed By: David Lopez at 06/11/2018 5:23 PM WSN:[email or web address]
== END ==
LOC: RAD 14:21
PROVIDERS: ATTEND Urology
DX: C61 Malignant neoplasm of prostate (principal); M50.10 Cervical disc disorder with radiculopathy, unspecified cervical region
CPT/HCPCS: 72040

== ENCOUNTER → 2018-06-17 | Outpatient (CLI) | payer MEDICARE, OTHER ==
[~2018-06-17] MED LIST changes: +ACET-1966 PO; +ACET650T40 PO; +ALL300 PO; +BICA50TA13 PO; +CHOL500025 PO; +LORA10CA3 PO; +LUPRON IM; +POTA20TA94 PO; +PREG100C44 PO; +TURM1CAP PO; +UBID100C48 PO
[2018-06-17 12:32] LABS: INR 2.14
== END ==
LOC: LAB 12:00
PROVIDERS: ATTEND Internal Medicine Cardiovascular Disease
DX: Z51.81 Encounter for therapeutic drug level monitoring (principal); I48.0 Paroxysmal atrial fibrillation; Z79.01 Long term (current) use of anticoagulants
CPT/HCPCS: 36415; 85610

== ENCOUNTER → 2018-06-18 | Outpatient (CLI) | payer MEDICARE, OTHER ==
--- NOTE | 2018-06-18 12:00 | RADIOLOGY IMAGING REPORT ---
FACILITY: [facility] PATIENT NAME: Coleen Wall : 1945 MR: [id number] V: [id number] EXAM DATE: ORDERING PHYSICIAN: MEG IYER TECHNOLOGIST: Location: [facility] Patient: Coleen Wall : 1945 Visit/Account:[id number] Date of Sevice: 06/18/2018 DEXA Scan Clinical history: Osteopenia. Comparison: None available. LUMBAR SPINE: The bone mineral density (BMD) measured from L1-L4 correlates with a Z-score -1.1 and a T-score of -0 .9 which is Normal as defined by the World Health Organization. The corresponding risk of fracture i n the lumbar spine is Not increased compared with a young adult reference population. HIP: Bone mineral density (BMD) measured in the left femoral neck region correlates with a Z-score -1.0 an d a T-score of -1.8 which is osteopenia as defined by the World Health Organization. The correspondi ng risk of fracture in the hip is increase compared with a young adult reference population. Bone mineral density (BMD) measured in the Femoral Neck region measures 0.836 g/cm2. Impression: 1. Lumbar spine: Normal. 2. Left femoral neck region: Osteopenia. 3. Femoral Neck: Bone Mineral Density is 0.836 g/cm2 The next DEXA scan of this patient should include the following sites: L1-L4 and the left hip. FRAX? WHO Fracture Risk Assessment Tool link: <http://www.shef.ac.uk/FRAX/tool.jsp?locationValue=9> PLEASE NOTE: 1) The World Health Organization defines low BMD as follows: T-score Normal > -1 Osteopenia < -1 and > -2.5 Osteoporosis < -2.5 without fractures Established osteoporosis < -2.5 with fractures 2) In general, you may wish to consider: Diagnosis Treatment Follow-up DEXA Normal BMD Prevention 2-3 years Osteopenia Prevention/therapy 1-2 years Osteoporosis Therapy Yearly 3) Fracture risk estimated from the T-score is more accurate for vertebral fractures (often spontane ous) than for hip fractures. Report Dictated By: Rob Steen at 06/18/2018 11:53 AM Report E-Signed By: Rob Steen at 06/18/2018 11:55 AM WSN:[email or web address]
== END ==
LOC: RAD 07:01
PROVIDERS: ATTEND Urology
DX: M85.80 Other specified disorders of bone density and structure, unspecified site (principal); M19.90 Unspecified osteoarthritis, unspecified site; Z79.818 Long term (current) use of other agents affecting estrogen receptors and estrogen levels; C61 Malignant neoplasm of prostate
CPT/HCPCS: 77080

== ENCOUNTER → 2018-06-21 | Outpatient (CLI) | payer MEDICARE, OTHER ==
[2018-06-21 12:14] LABS: INR 2.31
== END ==
LOC: LAB 11:46
PROVIDERS: ATTEND Internal Medicine Cardiovascular Disease
DX: Z51.81 Encounter for therapeutic drug level monitoring (principal); I48.0 Paroxysmal atrial fibrillation; Z79.01 Long term (current) use of anticoagulants
CPT/HCPCS: 36415; 85610

== ENCOUNTER → 2018-07-05 | Outpatient (CLI) | payer MEDICARE, OTHER ==
[2018-07-05 12:07] LABS: INR 2.44
== END ==
LOC: LAB 11:17
PROVIDERS: ATTEND Internal Medicine Cardiovascular Disease
DX: Z51.81 Encounter for therapeutic drug level monitoring (principal); Z79.01 Long term (current) use of anticoagulants; I48.0 Paroxysmal atrial fibrillation
CPT/HCPCS: 36415; 85610

== ENCOUNTER → 2018-07-26 | Outpatient (CLI) | payer MEDICARE, OTHER ==
[~2018-07-26] MED LIST changes: +CHOL200022 PO; -CHOL200085 PO; -LOSA50TA74 PO; +LOSA50TA80 PO; +TAMS0.4C25 PO
== END ==
LOC: LAB 10:12
PROVIDERS: ATTEND Radiology Radiation Oncology
DX: C61 Malignant neoplasm of prostate (principal)
CPT/HCPCS: 36415; 84153

== ENCOUNTER → 2018-08-02 | Outpatient (CLI) | payer MEDICARE, OTHER ==
[2018-08-02 10:33] LABS: INR 2.07
== END ==
LOC: LAB 09:58
PROVIDERS: ATTEND Internal Medicine Cardiovascular Disease
DX: Z51.81 Encounter for therapeutic drug level monitoring (principal); Z79.01 Long term (current) use of anticoagulants; I48.0 Paroxysmal atrial fibrillation
CPT/HCPCS: 36415; 85610

== ENCOUNTER → 2018-08-30 | Outpatient (CLI) | payer MEDICARE, OTHER ==
[~2018-08-30] MED LIST changes: -SIMV5TAB60 PO; +SIMV5TAB69 PO
[2018-08-30 11:46] LABS: INR 2.11
== END ==
LOC: LAB 09:54
PROVIDERS: ATTEND Internal Medicine Cardiovascular Disease
DX: Z51.81 Encounter for therapeutic drug level monitoring (principal); Z79.01 Long term (current) use of anticoagulants; I48.0 Paroxysmal atrial fibrillation
CPT/HCPCS: 36415; 85610

== ENCOUNTER 2018-08-31 09:29 | Outpatient (RCR) | payer MEDICARE, OTHER ==
--- NOTE | 2018-06-15 22:57 | ONCOLOGY CONSULTATION ---
EVENT DATE: June 15, 2018 DIAGNOSIS Poorly differentiated adenocarcinoma of the prostate, patient presenting with [place] 4 + 5 = 9, poorly differentiated adenocarcinoma in four of 12 biopsy specimens. Highest volume 70%. Prostate size 48 cc. Negative evaluation for metastatic disease. PSA 3.3 ng/mL prior to biopsy on 01/21/18. Stage T1c. HISTORY This is a pleasant, 73-year-old gentleman who was referred to me by Dr. Adair to discuss therapeutic options for newly diagnosed prostate carcinoma. Diagnosis was established on 06/01/18. Excellent records were provided by the patient, who has typed up detailed medical history per my review today. Patient has reasonably good voiding function at this time, baseline nocturia times one. He denies any new or persistent bone pain. Patient has a history of nephrolithiasis and has been under the close watchful eye of Dr. Adair for the last eight years. His PSA traditionally has been stable under 2 through 2017. This past year, the PSA yola a full point to 3.3 ng/mL in January, and the patient was advised to have an ultrasound-guided biopsy of the gland. Biopsy was notable for a [place] 4 + 5 = 9, poorly differentiated malignancy in four core biopsy specimens. See pathology report for further details. Patient is aware of the fact that he most likely will receive radiotherapy for his newly diagnosed malignancy and is here to review details of the possible treatment program. Patient has undergone a staging bone scan on 06/04/18, which I reviewed on the computer; negative for malignancy. Degenerative changes predominantly in the cervical spine. Plain films negative for any osteoblastic lesions at that location. He had a CT scan of the abdomen and pelvis with contrast on 06/04/18. That study reveals a mildly enlarged prostate gland with a prominent median lobe. There is was indistinctness of the periprostatic fat planes along the inferior aspect which was a new finding. No pelvic lymphadenopathy. No osteoblastic bone lesions. He did have small calculi in both kidneys up to 4 mm in size. Recent CBC and metabolic panel were normal. PAST MEDICAL HISTORY 1. Degenerative arthritis. 2. COPD. 3. GERD. 4. Prostate cancer with history listed above. 5. Cardiac arrhythmias. 6. Hypertension. 7. Atrial fibrillation. MEDICATIONS 1. Warfarin 5 mg a day. 2. Protonix 40 mg a day. 3. Metoprolol 25 mg p.r.n. 4. Lyrica 100 mg at bedtime. 5. Celebrex 200 mg a day. 6. Losartan 50 mg a day. 7. Allopurinol 300 mg a day. 8. Amiloride/hydrochlorothiazide 2.5/25 mg a day. 9. O2 at 2L to 3L q. night in CPAP. ALLERGIES PENICILLIN, LISINOPRIL. SURGICAL HISTORY 1. Prostate biopsy. 2. Left arm fracture in 1994. 3. Vasectomy. 4. Left shoulder surgery 1995, 2001. 5. Ankle surgery 2010. 6. Decompressive spinal surgery 2010 in [place]. 7. Prior cholecystectomy 2013. 8. Prior cataract surgery left and right eyes 2013. SOCIAL HISTORY Patient is retired. Two children, ages 35 and 38. . Smoking history: One to two packs per day for 26 years and quit in 1990. Patient previously worked 11 years on the [employer] service and 23 years with the [employer]. FAMILY HISTORY Notable for brother who had colon carcinoma at age 59. Another brother had diabetes, age 57. Mother had Alzheimer disease in her 80s. His father had Alzheimer disease in his mid 70s. REVIEW OF SYSTEMS Review of systems notable for slightly slowed stream over the past two years and increased urinary frequency related to fluid intake. PHYSICAL EXAMINATION GENERAL: Pleasant, 73-year-old gentleman of medium build. Baseline fatigue grade of 5. VITAL SIGNS: Weight 243. BP 128/78, pulse 73, respirations 16, O2 sat 90%. LYMPHATICS: No peripheral lymphadenopathy. LUNGS: Clear bilaterally. HEART: Heart sounds irregularly irregular with good rate control. ABDOMEN: Soft. No gross organomegaly. RECTAL: Prostate is enlarged. Palpable induration in the left and right peripheral zones of the prostate. No tenderness noted. IMPRESSION This is a 73-year-old gentleman with newly diagnosed poorly differentiated adenocarcinoma of the prostate. Tumor is occupying four core biopsies. PSA is relatively low; however, there has been significant change in the last [address] scan, there is indistinctness of the fat plane around the prostate on the left side with suggestion of extraprostatic extension. This would make the patient T3 malignancy, radiographic N0 M0. RECOMMENDATIONS I reviewed several treatment options with the patient. I think he would be best suited for a combination of androgen deprivation therapy with full-dose external beam radiotherapy. Since he is on anticoagulation, I would elect not to proceed with the seed implant for the boost. Treatment course would be delivered with IMRT treatment technique and progressive field reductions at five weeks and seven weeks. In general, the treatment is delivered in 40 fractions with generous margin laterally on the prostate at least over the first five weeks of the treatment program. Side effects are typically an increased urinary urgency and frequency, particularly week four, on. The latter can be successfully managed with Flomax and progressive field reductions. Patient appeared to be well counseled prior to the appointment today. We reviewed his radiographic studies on the computer and the pathology findings. Signed consent was obtained for treatment. I wrote out a prescription note for the Lupron with note for the patient to receive this through Dr. Adair's office with 30 mg IM q.4 months times six total doses. This should maximize the probability of sustained tumor control at least to the 75% to 85% range. I would like to get started with the treatment course in approximately 14 days. Thank you for the referral and excellent records which accompanied the patient today. Please do not hesitate to contact me if there are any questions regarding the above recommendations. Staff will contact urology office in a.m. IMPRESSION [[place] 9 poorly differentiated prostate cancer. High risk for extracapsular spread and LN involvement*] PLAN [ 1. Proceed with ADT in the form of Lupron 30mg IM q 4 months x 6 doses; faxed RX to Dr. Gloria office. 2. Proceed with IMRT external beam radiation therapy to min dose [address] and SV phase 1, then prostate phase 2/3 with progressive field reductions; start tx in two weeks.* MTDD
[2018-06-29 10:26] LABS: PLATELET COUNT, AUTOMATED 127 K/uL (150-450)
[2018-07-16 10:10] LABS: PLATELET COUNT, AUTOMATED 122 K/uL (150-450)
--- NOTE | 2018-08-31 13:21 | ONCOLOGY COMPLETION NOTE ---
EVENT DATE: August 31, 2018 DIAGNOSIS Poorly differentiated adenocarcinoma of prostate. Patient presented with [place] 4+5=9 poorly differentiated adenocarcinoma in 4 of 12 core biopsies. Highest volume 70%. Prostate size 48 cc's. Negative metastatic evaluation. Baseline prebiopsy of 3.3 ng/mL on January 21, 2018. Clinical T1c. Plan external beam full dose external beam radiotherapy with concurrent ADT suppression for 24 months. Later directed by Dr. Adair. TREATMENT DETAILS Radiation therapy was started on June 29 and completed on July 01, 2019. DOSING TECHNIQUE Patient was treated with progressive field reduction technique with field changes at 45 Gy, 54 Gy with radiation completion dose of 78 Gy. The first 30 treatments were delivered at 180 cGy/fraction. The last phase of radiation continued at 200 cGy/fraction. Combined dose was 7800 cGy in 42 daily fractions. TOLERANCE Patient tolerated the radiation course quite well. He did experience initial urinary urgency and frequency, which seemed to improve as time went on. Patient also learned how to control and relax some of his pelvic floor muscles. He has a rare hot flash at this time. DISPOSITION The patient has now completed his radiation program. His PSA has already dropped to 0.16, ng/mL on August 12, 2018. PLAN The patient is to follow up with Dr. Adair the first week of October with a PSA prior. He will return to the clinic to see me in late January with PSA prior to that appointment as well. Patient has interacted well the staff at the Cancer Center and hopefully the tumor will remain under control. I told him I am very pleased with the PSA response to date. Radiation therapy related symptoms should normalize within six weeks on average. Thank you for the referral and opportunity to participate in this gentleman's care. GABO
--- NOTE | 2018-09-01 09:08 | NUR ---
Pt completed followup HADS form. Pt scored A:1, D:3 (no concerns).
== END 2018-09-12 ==
LOC: RAON 09:29
PROVIDERS: ATTEND Radiology Radiation Oncology
DX: Z51.0 Encounter for antineoplastic radiation therapy (principal); C61 Malignant neoplasm of prostate; Z79.01 Long term (current) use of anticoagulants; Z79.899 Other long term (current) drug therapy
CPT/HCPCS: 36415; 77280; 77290; 77300; 77301; 77336; 77338; 77385; 84153; 84403; 84443; 85025; 85610; 87088; G0463; 82040; 82247; 82310; 82374; 82435; 82565; 82947; 83735; 84075; 84132; 84155; 84295; 84450; 84460; 84520; 99202

== ENCOUNTER → 2018-09-01 | Outpatient (CLI) | payer MEDICARE, OTHER | LOC: LAB 14:21 | PROVIDERS: ATTEND Family Medicine | DX: E87.8 Other disorders of electrolyte and fluid balance, not elsewhere classified (principal); M62.838 Other muscle spasm | CPT/HCPCS: 36415; 82310; 82374; 82435; 82565; 82947; 83735; 84132; 84295; 84520 ==

== ENCOUNTER → 2018-09-06 | Outpatient (CLI) | payer MEDICARE, OTHER | LOC: LAB 13:53 | PROVIDERS: ATTEND Family Medicine | DX: E83.52 Hypercalcemia (principal) | CPT/HCPCS: 36415; 83970 ==

== ENCOUNTER → 2018-09-13 | Outpatient (CLI) | payer MEDICARE, OTHER ==
--- NOTE | 2018-09-13 11:47 | RADIOLOGY IMAGING REPORT ---
FACILITY: [facility] PATIENT NAME: Coleen Wall : 1945 MR: [id number] V: [id number] EXAM DATE: ORDERING PHYSICIAN: CALLUM FLEMING TECHNOLOGIST: Location: Patient: Coleen Wall : 1945 Visit/Account:[id number] Date of Sevice: 09/13/2018 THYROID HISTORY: Elevated PTH, calcium COMPARISON: None. FINDINGS: SIZE: Right lobe: 5.7 x 1.6 x 2.2 cm Left lobe: 4.6 x 1.1 x 2.2 cm Isthmus: 6 mm PARENCHYMA: Homogeneous. NODULES: Right lobe: * Posterior to the mid right lobe there is a 1.3 x 0.8 x 0.4 cm ovoid hypoechoic nodule which may re present a parathyroid gland Left lobe: * None discrete. Isthmus: * None discrete. VASCULARITY: Within normal limits. ADDITIONAL FINDINGS: None. IMPRESSION: Posterior to the mid right lobe there is a 1.3 x 0.8 x 0.4 cm ovoid hypoechoic nodule which may repre sent a parathyroid gland. REFERENCE: 2015 [place] [employer] Management Guidelines for Adult Patients with Thyroid Nodules and D ifferentiated Thyroid Cancer: The [place] [employer] Guidelines Task Force on Thyroid Nodul es and Differentiated Thyroid Cancer. SONOGRAPHIC PATTERNS: * Benign: Purely cystic nodules (no solid component); estimated risk of malignancy <1 percent; no bi opsy recommended. * Very Low Suspicion: Spongiform or partially cystic nodules without any of the sonographic features described in low, intermediate, or high suspicion patterns; estimated risk of malignancy <3 percent; consider FNA at > 2 cm (Observation without FNA is also a reasonable option). * Low Suspicion: Isoechoic or hyperechoic solid nodule, or partially cystic nodule with eccentric so lid areas, without microcalcification, irregular margin or ETE (extra-thyroidal extension), or taller than wide shape; estimated risk of malignancy 5-10 percent; recommend FNA at >1.5 cm. * Intermediate Suspicion: Hypoechoic solid nodule with smooth margins without microcalcifications, E TE (extra-thyroidal extension), or taller than wide shape; estimated risk of malignancy 10-20 percent ; recommend FNA at > 1 cm. * High Suspicion: Solid hypoechoic nodule or solid hypoechoic component of a partially cystic nodule with one or more of the following features: irregular margins (infiltrative, microlobulated), microc alcifications, taller than wide shape, rim calcifications with small extrusive soft tissue component, evidence of ETE (extra-thyroidal extension); estimated risk of malignancy >70-90 percent; recommend FNA at > 1 cm. NOTES: * Although a sonographically suspicious subcentimeter thyroid nodule without evidence of extrathyroi kyle extension or sonographically suspicious lymph nodes may be observed with close sonographic follow -up rather than pursuing immediate FNA, patient age and preference may modify decision-making. A > 50% interval increase in nodule volume and/or development of new suspicious sonographic features are felt to be a valid reasons for potential re-aspiration of a nodule previously shown to have benig n FNA cytology. Report Dictated By: Tana Hilton MD at 09/13/2018 11:41 AM Report E-Signed By: Tana Hilton MD at 09/13/2018 11:43 AM WSN:[email or web address]
== END ==
LOC: US 00:48
PROVIDERS: ATTEND Family Medicine
DX: E04.2 Nontoxic multinodular goiter (principal)
CPT/HCPCS: 76536

== ENCOUNTER → 2018-09-27 | Outpatient (CLI) | payer OTHER, MEDICARE ==
[2018-09-27 13:13] LABS: INR 2.65
== END ==
LOC: LAB 12:09
PROVIDERS: ATTEND Internal Medicine Cardiovascular Disease
DX: Z51.81 Encounter for therapeutic drug level monitoring (principal); Z79.01 Long term (current) use of anticoagulants; I48.0 Paroxysmal atrial fibrillation
CPT/HCPCS: 36415; 85610

== ENCOUNTER → 2018-10-13 | Outpatient (CLI) | payer MEDICARE, OTHER ==
[~2018-10-13] MED LIST changes: +OXYGENHOME INH
== END ==
LOC: LAB 11:10
PROVIDERS: ATTEND Internal Medicine Cardiovascular Disease
DX: I25.10 Atherosclerotic heart disease of native coronary artery without angina pectoris (principal)
CPT/HCPCS: 36415; 82465; 83718; 84478

== ENCOUNTER → 2018-10-14 | Outpatient (CLI) | payer MEDICARE, OTHER | LOC: LAB 15:36 | PROVIDERS: ATTEND Urology | DX: C61 Malignant neoplasm of prostate (principal) | CPT/HCPCS: 36415; 84153 ==

== ENCOUNTER → 2018-10-21 | Outpatient (CLI) | payer MEDICARE, OTHER ==
[~2018-10-21] MED LIST changes: +MAGNESIUM PO; +PREG150C33 PO
[2018-10-21 15:45] LABS: PLATELET COUNT, AUTOMATED 136 K/uL (150-450)
[2018-10-21 15:52] LABS: INR 2.01
--- NOTE | 2018-10-21 16:13 | RADIOLOGY IMAGING REPORT ---
FACILITY: [facility] [place] PATIENT NAME: Coleen Wall : 1945 MR: [id number] V: [id number] EXAM DATE: ORDERING PHYSICIAN: CALLUM FLEMING TECHNOLOGIST: Location: [facility] Patient: Coleen Wall : 1945 Visit/Account:[id number] Date of Sevice: 10/21/2018 EXAMINATION: PA and Lateral Chest 10/21/2018 3:34 PM HISTORY: Preop for parathyroid removal. History of atrial fibrillation. COMPARISON: 06/04/2018 FINDINGS: Cardiomediastinal contours: Stable heart size. Unremarkable mediastinal contours. Lungs and pleura: Increased but stable pulmonary parenchymal markings with basilar scarring particula rly on the left. No acute infiltrate. Pleural spaces remain clear. Bones/soft tissues: Degenerative changes. Accentuated thoracic kyphosis. Previous left shoulder aman aubrey. IMPRESSION: Stable chest without acute cardiopulmonary abnormality. Report Dictated By: Rob Monahan MD at 10/21/2018 4:08 PM Report E-Signed By: Rob Monahan MD at 10/21/2018 4:10 PM WSN:[email or web address]
== END ==
LOC: LAB 15:14
PROVIDERS: ATTEND Family Medicine
DX: Z01.812 Encounter for preprocedural laboratory examination (principal); Z01.818 Encounter for other preprocedural examination; I48.91 Unspecified atrial fibrillation; E21.3 Hyperparathyroidism, unspecified
CPT/HCPCS: 36415; 71046; 85025; 85610

== ENCOUNTER 2018-11-01 02:50 | Observation (INO) | payer MEDICARE, OTHER ==
[2018-10-31 17:42] LABS: PLATELET COUNT, AUTOMATED 130 K/uL (150-450)
[2018-10-31 17:46] LABS: INR 1.03
[2018-11-01] VITALS (14 sets, daily range): BP systolic 105–127; BP diastolic 57–89
[~2018-11-01] VITALS: Ht 188 cm; Wt 111.6 kg
[2018-11-01] MEDS ORDERED: NORMOSOL R SOLN(*) 1000 ML BAG 1,000 ML IV PRN (11:55)
[2018-11-01] MEDS ORDERED: MIDAZOLAM 2 MG/2 ML VIAL IVP PRN (11:55)
[2018-11-01] MEDS ORDERED: LIDOCAINE/SOD BICARB 8.4% SYR ID ONE (11:55)
[2018-11-01] MEDS ORDERED: CLINDAMYCIN(*) 600 MG/NS 50 ML 50 ML IVPB ONE (12:55)
[2018-11-01] MEDS ORDERED: LIDO/EPI 1% MDV 1:100,000 20ML INFIL ONE (13:56)
[2018-11-01] MEDS ORDERED: LR(*) 1000 ML BAG 1,000 ML IV PRN (14:01)
[2018-11-01] MEDS ORDERED: PHENYLEPHRINE 10 MG/1 ML VIAL ONE (14:03)
[2018-11-01] MEDS ORDERED: SUCCINYLCHOL CHL 100MG/5ML SYR IVP ONE (14:03)
[2018-11-01] MEDS ORDERED: PROPOFOL EMUL 10MG/ML 20 ML VL ONE (14:03)
[2018-11-01] MEDS ORDERED: DEXAMETHASONE SOD PHOS 10MG/ML ONE (14:03)
[2018-11-01] MEDS ORDERED: METOPROLOL TART 50 MG TAB PO PRN (14:05)
[2018-11-01] MEDS ORDERED: ACETAMINOPHEN 325 MG TAB PO PRN (14:05)
[2018-11-01] MEDS ORDERED: MORPHINE 2 MG/ML SYR IVP PRN (14:05)
[2018-11-01] MEDS ORDERED: PROMETHAZINE 25 MG/ML 1 ML AMP IVP PRN (14:05)
[2018-11-01] MEDS ORDERED: ONDANSETRON 4 MG ODT TABDP SL PRN (14:05)
[2018-11-01] MEDS ORDERED: fentaNYL CITR 100 MCG/2 ML AMP ONE ×2 (14:39→16:14)
[2018-11-01] MEDS ORDERED: EPINEPHrine HCL 1 MG/ML AMP ONE (14:58)
--- NOTE | 2018-11-01 15:13 | Post Operative Note ---
Operative Note - ENT Operative Day Date: Nov 01, 2018 Physicians Surgeon: Medardo Psychological Science Professor: Melinda Anesthesia: GETA Diagnosis Pre-Op Diagnosis: hyperparathyroidism Post-Op Diagnosis: same Procedure Findings: see dictated note Procedure(s): right inferior parathyroidectomy Specimen Removed:(Maybe N/A): right inferior parathyroid Complications: none Fluids Fluids: see anesthesia note Estimated Blood Loss: 10 ml FRANCISCO VALENZUELA JR, MD Nov 01, 2018 15:13
[2018-11-01] MEDS ORDERED: ONDANSETRON 4 MG/2 ML VIAL ONE (16:57)
[2018-11-01] MEDS: TAMSULOSIN HCL 0.4 MG CAP PO SCH (20:50)
[2018-11-01] MEDS: CALCIUM CARBONATE 500 MG CHEW CHEW SCH (20:50)
[2018-11-01] MEDS: PREGABALIN 150 MG CAPSULE PO SCH (20:51)
[2018-11-01] MEDS ORDERED: SIMVASTATIN 20 MG TAB PO SCH (21:00)
[2018-11-02 02:00] VITALS: BP 96/54
[2018-11-02 03:00] VITALS: BP 111/73
[2018-11-02] MEDS: APAP/HYDROCODONE 325/5 TAB PO PRN ×2 (03:27→10:13)
--- NOTE | 2018-11-02 04:49 | OPERATIVE REPORT 1 ---
EVENT DATE: November 01, 2018 SURGEON: Omer Batres Jr., MD ANESTHESIOLOGIST: Fan Johnson MD ANESTHESIA: General endotracheal. ARCHITECTURAL INSPECTOR: Karla Lawrence, LITIGATION ASSOCIATE, CSFA PREOPERATIVE DIAGNOSIS Hyperparathyroidism. POSTOPERATIVE DIAGNOSIS Hyperparathyroidism. PROCEDURE PERFORMED Right anterior parathyroidectomy. INDICATIONS Please refer to the preoperative note. DESCRIPTION OF PROCEDURE The patient was positively identified in the preoperative area. He was accompanied by his . Risks were again explained, including but not limited to bleeding, infection, injury to the recurrent laryngeal nerve, transient or permanent dysphonia, persistent hyperparathyroidism, hypoparathyroidism, and those associated with anesthesia. He acknowledged understanding of those risks. He was then brought back to the operative suite, laid supine on the operating table, and anesthesia was administered. Of note, the laryngeal nerve monitor was applied to the patient and utilized throughout the case. Once asleep, the patient was positioned and prepped and draped in the usual sterile fashion. A 4 cm incision was planned in a favorable neck crease overlying the thyroid gland. Approximately 1 mL of 1% lidocaine with epinephrine was infiltrated. The aforementioned incision was then made with a #15 blade, and the underlying subcutaneous tissue was then dissected with the Bovie electrocautery. The platysma muscle was encountered and divided with Bovie electrocautery. Subplatysmal flaps were elevated superiorly to the level of the thyroid notch and inferiorly to the level of the sternal notch. The strap musculature was identified and divided along the median raphe. I then elevated the strap musculature off of the right thyroid lobe. I then carefully dissected lateral to the right thyroid lobe in the area of suspicion, given the patient's preoperative ultrasound. An approximately 1.5 cm lesion consistent with parathyroid adenoma was identified. This was carefully dissected from the surrounding tissues. It was sent for permanent pathology. The wound was then copiously irrigated with normal saline solution. A small piece of fibrillar Surgicel was placed. The platysma and strap musculature were then reapproximated with interrupted chromic suture. The skin was closed in a multilayer fashion. The patient was then turned to Anesthesia for emergence. ESTIMATED BLOOD LOSS 10 mL. COMPLICATIONS: None. MTDD
[2018-11-02 06:52] VITALS: BP 101/69
[2018-11-02] MEDS ORDERED: LOR5/325 PO (08:01)
--- NOTE | 2018-11-02 08:05 | Short(Outpt) Discharge Summary ---
Discharge Summary Reason for Hosp/Final Diag: (1) Hyperparathyroidism Status: Resolved Hospital Course & Plan: Patient admitted after parathyroidectomy. Ashley reg diet. Pain controlled. Calcium normalized this morning. Departure Discharge to: Home Discharge Instructions Home Meds Active Scripts Hydrocodone Bit/Acetaminophen (HYDROCODON-ACETAMINOPHEN 5-325) 1 Each Tablet, 1 TAB PO Q6H PRN for MILD TO MODERATE PAIN for 7 Days, #15 TAB Prov:FRANCISCO VALENZUELA JR, MD 11/02/18 Reported Medications [Magnesium 400] No Conflict Check, 400 MG PO HS 10/18/18 Pregabalin (LYRICA) 150 Mg Capsule, 150 MG PO BID, CAPSULE 10/18/18 Oxygen (OXYGEN) Inha, 2-3 L INH HS, L 10/11/18 Tamsulosin Hcl (FLOMAX) 0.4 Mg Cap.er.24h, 0.4 MG PO BID, #60 CAP 5 Refills 07/21/18 Acetaminophen (ACETAMINOPHEN) 650 Mg Tablet.er, 1 TAB PO TID, TAB 06/17/18 Cholecalciferol (Vitamin D3) (VITAMIN D3) 5,000 Unit Tablet, 1 TAB PO QDAY 06/17/18 Potassium Chloride (POTASSIUM CHLORIDE) 20 Meq Tab.er.prt, 1 TAB PO QDAY 06/17/18 Allopurinol (ZYLOPRIM 300 MG TAB (OR EQUIV)) 300 Mg Tab, 1 TAB PO QDAY, TAB 06/17/18 Turmeric/Turmeric Ext/Pepr Ext (Turmeric Complex 500 mg Cap) 500 Mg-3 Mg Capsule, 1 CAP PO DAILY 06/15/18 Loratadine (CLARITIN) 10 Mg Capsule, 1 CAP PO PRN, CAPSULE 06/15/18 Ubidecarenone (COQ-10) 100 Mg Capsule, 1 CAP PO DAILY, CAPSULE 06/15/18 Metoprolol Tartrate (METOPROLOL TARTRATE) 25 Mg Tablet, 1 TAB PO PRN, TAB 06/15/18 Colesevelam Hcl (WELCHOL) 625 Mg Tablet, 1 TAB PO PRN PRN for DIARRHEA 04/05/18 Simvastatin (SIMVASTATIN) 5 Mg Tablet, 1 TAB PO HS, TAB 04/05/18 Warfarin Sodium (WARFARIN SODIUM) 5 Mg Tablet, 1 TAB PO QDAY, TAB 5mg M/W//Sat, 2.5mg Thu//03/14/18 Amiloride/Hctz (AMILORIDE HCL-HCTZ 5-50 MG TAB) 1 Each Tab, 0.5 TAB PO DAILY, TAB 11/19/13 Losartan Potassium (LOSARTAN POTASSIUM) 50 Mg Tablet, 1 TAB PO QDAY 11/19/13 Multivitamins W-Minerals/Lut (Centrum Silver Tablet) 1 Tab Tablet, 1 TAB PO QDAY, 0 Refills 07/30/11 Docosahexanoic Acid/Epa (Fish Oil 1,000 Mg Capsule) 1 Cap Capsule, 1 CAP PO QDAY, 0 Refills 07/30/11 Aspirin (Aspirin) 81 Mg Tablet.dr, 1 TAB PO DAILY, 0 Refills 07/30/11 Fluticasone Propionate (Flonase) 16 Gm [place], 2 SPRAYS NS DAILY, 0 Refills 07/30/11 Pantoprazole Sod (Protonix) 40 Mg Tabec, 1 TAB PO QDAY, 0 Refills 07/30/11 Celecoxib (Celebrex) 200 Mg Capsule, 1 CAP PO DAILY, 0 Refills 07/30/11 Diet: Regular Activity: No Heavy Lifting, No Exertion Special Instructions: Patient may restart aspirin and coumadin on Thursday. Follow up visit 11/08 @ 2:20 PM. RN will call to arrange for PTH lab prior. FRANCISCO VALENZUELA JR, MD Nov 02, 2018 08:05
[2018-11-02] MEDS ORDERED: PANTOPRAZOLE SOD 40 MG TABEC PO SCH (09:00)
[2018-11-02] MEDS: PREGABALIN 150 MG CAPSULE PO SCH (09:00)
[2018-11-02] MEDS ORDERED: LOSARTAN POTASSIUM 50 MG TAB PO SCH (09:00)
[2018-11-02] MEDS ORDERED: ALLOPURINOL 300 MG TAB PO SCH (09:00)
[2018-11-02] MEDS ORDERED: HYDROCHLOROTHIAZIDE 25 MG TAB PO SCH (09:00)
[2018-11-02] MEDS ORDERED: POTASSIUM CHL 20 MEQ TABCR PO SCH (09:00)
[2018-11-02] MEDS: CALCIUM CARBONATE 500 MG CHEW CHEW SCH (09:00)
[2018-11-02 09:17] VITALS: BP 106/49
[2018-11-02] MEDS: TAMSULOSIN HCL 0.4 MG CAP PO SCH (09:50)
== END 2018-11-02 08:08 | disposition home or self-care (01) ==
LOC: OR 02:50 → MED 17:40 → INTOOBSV 17:40
PROVIDERS: ADMIT Otolaryngology; ATTEND Otolaryngology
DX: E21.3 Hyperparathyroidism, unspecified (principal); I10 Essential (primary) hypertension; Z79.01 Long term (current) use of anticoagulants
CPT/HCPCS: 36415; 60500; 82310; 83970; 85025; 85610; 88305; A9270; G0378; J0171; J0330; J1100; J2250; J2370; J2405; J2704; J3010; J3490

== ENCOUNTER → 2018-11-08 | Outpatient (CLI) | payer MEDICARE, OTHER ==
[2018-11-08 11:28] LABS: INR 1.28
== END ==
LOC: LAB 11:01
PROVIDERS: ATTEND Internal Medicine Cardiovascular Disease
DX: Z51.81 Encounter for therapeutic drug level monitoring (principal); Z79.01 Long term (current) use of anticoagulants; I48.0 Paroxysmal atrial fibrillation
CPT/HCPCS: 36415; 85610

== ENCOUNTER → 2018-11-30 | Outpatient (CLI) | payer MEDICARE, OTHER ==
[2018-11-30 12:28] LABS: INR 1.59
== END ==
LOC: LAB 11:57
PROVIDERS: ATTEND Internal Medicine Cardiovascular Disease
DX: I48.0 Paroxysmal atrial fibrillation (principal); Z79.01 Long term (current) use of anticoagulants
CPT/HCPCS: 36415; 85610

== ENCOUNTER → 2018-12-21 | Outpatient (CLI) | payer MEDICARE, OTHER ==
[2018-12-21 16:34] LABS: INR 1.96
== END ==
LOC: LAB 14:53
PROVIDERS: ATTEND Internal Medicine Cardiovascular Disease
DX: Z51.81 Encounter for therapeutic drug level monitoring (principal); Z79.01 Long term (current) use of anticoagulants; I48.0 Paroxysmal atrial fibrillation
CPT/HCPCS: 36415; 85610

== ENCOUNTER → 2018-12-27 | Outpatient (CLI) | payer MEDICARE, OTHER ==
[2018-12-27 12:43] LABS: LDL CHOLESTEROL 46 mg/dl
== END ==
LOC: LAB 11:15
PROVIDERS: ATTEND Family Medicine
DX: C61 Malignant neoplasm of prostate (principal); E78.5 Hyperlipidemia, unspecified; I10 Essential (primary) hypertension; R73.01 Impaired fasting glucose
CPT/HCPCS: 36415; 82040; 82247; 82310; 82374; 82435; 82465; 82565; 82947; 83036; 83718; 84075; 84132; 84155; 84295; 84450; 84460; 84478; 84520; 85027

== ENCOUNTER 2019-01-06 20:30 | Emergency (ER) | payer MEDICARE, OTHER ==
[~2019-01-06 20:30] MED LIST changes: -ONDA4TAB9 PO
--- NOTE | 2019-01-06 20:30 | ER Report ---
History and Physical Time Seen By MD: 20:28 HPI/ROS CHIEF COMPLAINT: Fell down stairs HISTORY OF PRESENT ILLNESS: 73-year-old male brought in by EMS complaining of severe right knee and ankle pain after falling down several stairs. Patient denies head impact, neck pain, chest pain, shortness of breath. He does note some left shoulder pain. He notes bilateral knee pain. He states when he fell. He hyperflexed both knees and his heels touched his buttocks region. Patient felt a sharp stabbing pain in his right leg on the lateral aspect of his knee. Patient does note that he did hit his right lower back on a step and has some mild pain there. Patient shows good range of motion of his left knee. He has some mild discomfort there. He has significant pain in his right knee, which she rates as an 8/10, aggravated by movement. His right ankle is grossly swollen. He also notes pain in his foot. REVIEW OF SYSTEMS: Respiratory: No cough, no dyspnea. Cardiovascular: No chest pain, no palpitations. Gastrointestinal: No vomiting, no abdominal pain. Musculoskeletal: No back pain. Allergies: Coded Allergies: Penicillins (Verified Allergy, Severe, ANAPHYLAXIS, 10/18/18) lisinopril (Verified Adverse Reaction, Intermediate, ?CAUSE OF PANCREATITIS, 10/18/18) Uncoded Allergies: hayfever (Allergy, Intermediate, UNKNOWN, 01/21/12) Home Meds Active Scripts Ondansetron 4 Mg Odt (ONDANSETRON 4 MG ODT) 4 Mg Tab.rapdis, 4 MG PO Q6H PRN for NAUSEA/VOMITING, #12 TAB Prov:RUBEN RUANO DO 01/06/19 Hydrocodone Bit/Acetaminophen (HYDROCODON-ACETAMINOPHEN 5-325) 1 Each Tablet, 1 EACH PO Q4-6H PRN for PAIN, #12 TAKE ONE TABLET BY MOUTH EVERY 4-6 HOURS NEEDED FOR PAIN Prov:RUBEN RUANO DO 01/06/19 Reported Medications Warfarin Sodium (WARFARIN SODIUM) 5 Mg Tablet, 0.5 MG PO sun,tues,thur, TAB 01/06/19 Warfarin Sodium (WARFARIN SODIUM) 5 Mg Tablet, 5 MG PO M,W,F,Sat, TAB 01/06/19 [Magnesium 400] No Conflict Check, 400 MG PO HS 10/18/18 Pregabalin (LYRICA) 150 Mg Capsule, 150 MG PO QHS, CAPSULE 10/18/18 Oxygen (OXYGEN) Inha, 2-3 L INH HS, L 10/11/18 Tamsulosin Hcl (FLOMAX) 0.4 Mg Cap.er.24h, 0.4 MG PO BID, #60 CAP 5 Refills 07/21/18 Cholecalciferol (Vitamin D3) (VITAMIN D3) 5,000 Unit Tablet, 1 TAB PO QDAY 06/17/18 Potassium Chloride (POTASSIUM CHLORIDE) 20 Meq Tab.er.prt, 1 TAB PO QDAY 06/17/18 Allopurinol (ZYLOPRIM 300 MG TAB (OR EQUIV)) 300 Mg Tab, 1 TAB PO QDAY, TAB 06/17/18 Turmeric/Turmeric Ext/Pepr Ext (Turmeric Complex 500 mg Cap) 500 Mg-3 Mg Capsule, 1 CAP PO DAILY 06/15/18 Loratadine (CLARITIN) 10 Mg Capsule, 1 CAP PO PRN, CAPSULE 06/15/18 Ubidecarenone (COQ-10) 100 Mg Capsule, 1 CAP PO DAILY, CAPSULE 06/15/18 Metoprolol Tartrate (METOPROLOL TARTRATE) 25 Mg Tablet, 1 TAB PO PRN, TAB 06/15/18 Colesevelam Hcl (WELCHOL) 625 Mg Tablet, 1 TAB PO PRN PRN for DIARRHEA 04/05/18 Simvastatin (SIMVASTATIN) 5 Mg Tablet, 1 TAB PO HS, TAB 04/05/18 Amiloride/Hctz (AMILORIDE HCL-HCTZ 5-50 MG TAB) 1 Each Tab, 0.5 TAB PO DAILY, TAB 11/19/13 Losartan Potassium (LOSARTAN POTASSIUM) 50 Mg Tablet, 1 TAB PO QDAY 11/19/13 Multivitamins W-Minerals/Lut (Centrum Silver Tablet) 1 Tab Tablet, 1 TAB PO QDAY, 0 Refills 07/30/11 Docosahexanoic Acid/Epa (Fish Oil 1,000 Mg Capsule) 1 Cap Capsule, 1 CAP PO QDAY, 0 Refills 07/30/11 Fluticasone Propionate (Flonase) 16 Gm [place], 2 SPRAYS NS DAILY, 0 Refills 07/30/11 Pantoprazole Sod (Protonix) 40 Mg Tabec, 1 TAB PO QDAY, 0 Refills 07/30/11 Celecoxib (Celebrex) 200 Mg Capsule, 1 CAP PO DAILY, 0 Refills 07/30/11 Discontinued Reported Medications Acetaminophen (ACETAMINOPHEN) 650 Mg Tablet.er, 1 TAB PO TID, TAB 06/17/18 Discontinued Scripts Hydrocodone Bit/Acetaminophen (HYDROCODON-ACETAMINOPHEN 5-325) 1 Each Tablet, 1 TAB PO Q6H PRN for MILD TO MODERATE PAIN for 7 Days, #15 TAB Prov:FRANCISCO VALENZUELA JR, MD 11/02/18 Past Medical/Surgical History Past Medical History HEENT: Reports hx of: cataracts recurrent sinusitis Cardiovascular: Reports hx of: hypertension Respiratory: Reports hx of: asthma (exercise induced) sleep apnea (uses c-pap w/O2 at night) Gastrointestinal: Reports hx of: GERD pancreatitis (hospitalized 2008) Genitourinary: Reports hx of: kidney stones Musculoskeletal: Reports hx of: back pain (herniated disk 2010) gout osteoarthritis other musculoskeletal hx (torn L shoulder capsule 1995) Hematology/oncology: Reports hx of: prostate cancer (Dx 06/01/18), other hematologic history (low potassium) Events: REPORTS HX OF: Anaphylaxis (from Penicillin at age 14) Past Surgical History HEENT: Reports hx of: cataract extraction (bilat 04/2014) dental surgery (wisdom teeth extracted 1965) other eye surgery (laser weld R retina 2009) Cardiovascular: Reports hx of: Vascular surgery (cadiac cath 2000, no stents) Gastrointestinal: Reports hx of: cholecystectomy (lap karri 12/15/13) other GI surgery (EGD/c-scope 2009, c-scope w/polypectomy 2005) Genitourinary: Reports hx of: cystoscopy (j-stent placed R kidney 1997) lithotripsy (2011, 2010, 2006, 1997) vasectomy (1983) Musculoskeletal: Reports hx of: spinal surgery (ruptured disc 2010) other musculosk surgery (L shoulder Bankhart procedure and acromioplasty 09/12/95, manipulation under anesthesia 11/24/95. R ankle surgery 12/19/01) Reviewed Nurses Notes: Yes Old Medical Records Reviewed: Yes Hx Smoking: Yes (QUIT 1990. SMOKED 1 PPD X 25 YRS) Smoking Status: Former Smoker Exposure to Second Hand Smoke?: No Hx Substance Use Disorder: No Hx Alcohol Use: Yes Constitutional Vital Sign - Last 24 Hours 01/06/19 01/06/19 01/06/19 01/06/19 20:33 20:45 21:00 21:15 Temp 98.7 Pulse 92 87 71 76 Resp 24 25 11 20 B/P (MAP) 127/89 114/65 (81) Pulse Ox 90 87 87 O2 Delivery Room Air 01/06/19 21:30 Pulse 73 Resp 13 B/P (MAP) 119/76 (90) Pulse Ox 88 Physical Exam General Appearance: The patient is alert, has no immediate need for airway protection and no current signs of toxicity. Palpation of the head and neck reveal no tenderness or trauma. Vital signs are stable, afebrile, pulse ox normal HEENT: Pupils equal and round no injection. Oropharynx without dental trauma Respiratory: Chest is non tender, lungs are clear to auscultation. No chest wall tenderness Cardiac: regular rate and rhythm Gastrointestinal: Abdomen is soft and non tender, no masses, bowel sounds normal. Musculoskeletal: Neck: Neck is supple and non tender. Extremities have full range of motion and are non tender. Close examination of the right knee shows gross soft tissue swelling and effusion. There is also soft tissue swelling of the right ankle. The right foot is neurovascularly intact. The left knee has mild tenderness on palpation but good range of motion. Skin: No rashes or lesions. DIFFERENTIAL DIAGNOSIS: After history and physical exam differential diagnosis was considered for sprain, strain, fracture, dislocation, contusion Medical Decision Making EKG/Imaging Imaging X-ray: Left shoulder, 2 views was obtained. I viewed the images myself on the PACS system. My interpretation of the images is: No fracture no dislocation, degenerative arthritic changes. The radiologist interpretation had no clinically significant variation from this interpretation. X-ray: Left knee, 3 views was obtained. I viewed the images myself on the PACS system. My interpretation of the images is: No fracture no dislocation, degenerative arthritic changes. The radiologist interpretation had no clinically significant variation from this interpretation. X-ray: Right knee, 3 views was obtained. I viewed the images myself on the PACS system. My interpretation of the images is: No fracture no dislocation or malalignment. The radiologist interpretation had no clinically significant variation from this interpretation. X-ray: Right ankle, 3 views was obtained. I viewed the images myself on the PACS system. My interpretation of the images is: 3 views right ankle INDICATION: Pain. Fall downstairs. COMPARISON: None Available FINDINGS: 3 views of the right ankle are obtained. On the lateral projection, there are dorsal avulsion fractures seen involving the navicular bone and the talus. These are better seen on today's foot exam. There is overlying soft tissue swelling. No other fractures are seen. The ankle mortise is intact. There our underlying changes of tibiotalar joint osteoarthritis which are moderate in severity. No definite joint effusion. There is a heel spur. There is bimalleolar soft tissue swelling. A small corticated ossification seen distal to the fibular malleolus felt to be sequela of an old injury. IMPRESSION: 1. Acute avulsion fractures involving the dorsum of the right talus and navicular bone. These are better seen on today's foot exam. 2. Moderate severity tibiotalar joint osteoarthritis. 3. Soft tissue swelling about the ankle. The radiologist interpretation had no clinically significant variation from this interpretation. X-ray: Right foot, 2 views was obtained. I viewed the images myself on the PACS system. interpretation of the images is: FOOT 2 VIEW RIGHT Indication: Fall. Pain. Comparison: None Available Findings: 2 views of the right foot were obtained. Best appreciated on the lateral projection, there are acute avulsion type fractures involving the dorsum of the navicular bone and the talus. There is associated soft tissue swelling. The small avulsion fracture fragments are displaced slightly dorsally. No other acute fractures seen. There is tibiotalar joint osteoarthritis. There is a small heel spur. In the forefoot, mild first metatarsophalangeal joint osteoarthritis is seen. No evidence of radiopaque foreign body. IMPRESSION: 1. Dorsal avulsion type fractures involving the right navicular bone and the talus with associated soft tissue swelling. 2. Small heel spur. The radiologist interpretation had no clinically significant variation from this interpretation. ED Course/Re-evaluation ED Course Patient was admitted to an examination room. H&P was done. The differential diagnoses was considered. Patient with a tumble down the stairs. He has multiple complaints. X-rays of various body parts were performed. There were no gross obvious fractures or dislocations. Notable avulsion fractures were found on his right foot by radiology. Patient was placed in a knee immobilizer of his right knee. His ankle was wrapped with Kit wrap and placed in air splint. Patient had his own crutches with him. They were fitted for him and he was educated on crutch safety. He was medicated with Lortab and Zofran. She was sent home with Lortab prepack 2 tablets for temporary pain relief tonight. He is given a prescription for 12. He's advised to follow-up with [facility]. He's had previous surgery by the physicians at this facility. Patient's on warfarin for his atrial fibrillation is unable to take NSAIDs, although he is taking Celebrex prescribed by his physician. Decision to Disposition Date: January 06, 2019 Decision to Disposition Time: 21:34 Depart Departure Latest Vital Signs Vital Signs Date Time Temp Pulse Resp B/P (MAP) Pulse Ox O2 Delivery O2 Flow Rate FiO2 01/06/19 21:30 73 13 119/76 (90) 88 01/06/19 20:33 98.7 Room Air Impression: Primary Impression: Fall with injury Additional Impressions: Right knee sprain Right ankle sprain Left knee sprain Contusion of left shoulder History of atrial fibrillation Chronic anticoagulation Condition: Improved Disposition: HOME OR SELF-CARE Referrals: CALLUM FLEMING DO (PCP) New Scripts Ondansetron 4 Mg Odt (ONDANSETRON 4 MG ODT) 4 Mg Tab.rapdis 4 MG PO Q6H PRN for NAUSEA/VOMITING, #12 TAB Prov: RUBEN RUANO DO 01/06/19 Hydrocodone Bit/Acetaminophen (HYDROCODON-ACETAMINOPHEN 5-325) 1 Each Tablet 1 EACH PO Q4-6H PRN for PAIN, #12 TAKE ONE TABLET BY MOUTH EVERY 4-6 HOURS NEEDED FOR PAIN Prov: RUBEN RUANO DO 01/06/19 Patient Instructions: Ankle Sprain (ED), Knee Sprain (ED) Additional Instructions: Elevate, rest and ice your injuries Use hydrocodone as needed for pain relief Follow-up with your primary care if unimproved in 3-5 days or you may go to [facility] orthopedic group at [phone], address [address] Problem Qualifiers Primary Impression: Fall with injury Encounter type: initial encounter Qualified Codes: W19.XXXA - Unspecified fall, initial encounter Additional Impressions: Right knee sprain Encounter type: initial encounter Involved ligament of knee: unspecified ligament Qualified Codes: S83.91XA - Sprain of unspecified site of right knee, initial encounter Right ankle sprain Encounter type: initial encounter Involved ligament of ankle: unspecified ligament Qualified Codes: S93.401A - Sprain of unspecified ligament of right ankle, initial encounter Left knee sprain Encounter type: initial encounter Involved ligament of knee: unspecified ligament Qualified Codes: S83.92XA - Sprain of unspecified site of left knee, initial encounter Contusion of left shoulder Encounter type: initial encounter Qualified Codes: S40.012A - Contusion of left shoulder, initial encounter RUBEN RUANO DO January 06, 2019 20:30
[2019-01-06] MEDS ORDERED: WARF5TAB23 PO ×2 (20:48)
[2019-01-06] MEDS ORDERED: APAP/HYDROCODONE 325/5 TAB PO ONE (21:25)
[2019-01-06] MEDS ORDERED: ACET/HYDROC 5/325MG TH ER ONLY 2 TAB/BOTTLE PO ONE (21:25)
[2019-01-06] MEDS ORDERED: ONDANSETRON 4 MG ODT TABDP SL ONE (21:25)
[2019-01-06 21:30] VITALS: BP 119/76
[2019-01-06] MEDS ORDERED: LOR5/325 PO (21:36)
--- NOTE | 2019-01-06 21:39 | RADIOLOGY IMAGING REPORT ---
FACILITY: [facility] PATIENT NAME: Coleen Wall : 1945 MR: [id number] V: [id number] EXAM DATE: ORDERING PHYSICIAN: RUBEN RUANO TECHNOLOGIST: Location: [facility] Patient: Coleen Wall : 1945 Visit/Account:[id number] Date of Sevice: 01/06/2019 KNEE 3 VIEW RIGHT Indication: Knee pain. Fall downstairs. Comparison: None available Findings: 3 views right knee were obtained. No acute fracture or dislocation is seen. There are mild changes of osteoarthritis identified. No evidence of joint effusion. There is no focal soft tissue abnormality. No evidence of radiopaque foreign body. IMPRESSION: 1. No acute fracture-dislocation at the right knee. 2. Mild severity 3 compartment osteoarthritis. Report Dictated By: Eladio Segura at 01/06/2019 9:34 PM Report E-Signed By: Eladio Segura at 01/06/2019 9:35 PM WSN:[id number]
--- NOTE | 2019-01-06 21:40 | RADIOLOGY IMAGING REPORT ---
FACILITY: [facility] PATIENT NAME: Coleen Wall : 1945 MR: [id number] V: [id number] EXAM DATE: ORDERING PHYSICIAN: RUBEN RUANO TECHNOLOGIST: Location: [facility] Patient: Coleen Wall : 1945 Visit/Account:[id number] Date of Sevice: 01/06/2019 KNEE 3 VIEW LEFT Indication: Knee pain. Fall downstairs. Comparison: None available Findings: 3 views left knee were obtained. No acute fracture or dislocation is identified. Mild severity 3 compartment osteoarthritis is seen. No evidence of joint effusion. There is no focal soft tissue abnormality. No evidence of radiopaque foreign body. IMPRESSION: 1. No acute fracture or dislocation of the left knee. 2. Mild severity 3 compartment osteoarthritis. Report Dictated By: Eladio Segura at 01/06/2019 9:36 PM Report E-Signed By: Eladio Segura at 01/06/2019 9:37 PM WSN:[id number]
--- NOTE | 2019-01-06 21:44 | RADIOLOGY IMAGING REPORT ---
FACILITY: [facility] PATIENT NAME: Coleen Wall : 1945 MR: [id number] V: [id number] EXAM DATE: ORDERING PHYSICIAN: RUBEN RUANO TECHNOLOGIST: Location: [facility] [place] Patient: Coleen Wall : 1945 Visit/Account:[id number] Date of Sevice: 01/06/2019 3 views right ankle INDICATION: Pain. Fall downstairs. COMPARISON: None Available FINDINGS: 3 views of the right ankle are obtained. On the lateral projection, there are dorsal avulsion fractures seen involving the navicular bone and the talus. These are better seen on today's foot exam. There is overlying soft tissue swelling. No ot her fractures are seen. The ankle mortise is intact. There our underlying changes of tibiotalar joint osteoarthritis which ar e moderate in severity. No definite joint effusion. There is a heel spur. There is bimalleolar soft t issue swelling. A small corticated ossification seen distal to the fibular malleolus felt to be seque la of an old injury. IMPRESSION: 1. Acute avulsion fractures involving the dorsum of the right talus and navicular bone. These are bet ter seen on today's foot exam. 2. Moderate severity tibiotalar joint osteoarthritis. 3. Soft tissue swelling about the ankle. Report Dictated By: Eladio Segura at 01/06/2019 9:37 PM Report E-Signed By: Eladio Segura at 01/06/2019 9:41 PM WSN:[id number]
--- NOTE | 2019-01-06 21:49 | RADIOLOGY IMAGING REPORT ---
FACILITY: [facility] PATIENT NAME: Coleen Wall : 1945 MR: [id number] V: [id number] EXAM DATE: ORDERING PHYSICIAN: RUBEN RUANO TECHNOLOGIST: Location: [facility] [place] Patient: Coleen Wall : 1945 Visit/Account:[id number] Date of Sevice: 01/06/2019 FOOT 2 VIEW RIGHT Indication: Fall. Pain. Comparison: None Available Findings: 2 views of the right foot were obtained. Best appreciated on the lateral projection, there are acute avulsion type fractures involving the alessio sum of the navicular bone and the talus. There is associated soft tissue swelling. The small avulsion fracture fragments are displaced slightly dorsally. No other acute fractures seen. There is tibiotalar joint osteoarthritis. There is a small heel spur. In the forefoot, mild first met atarsophalangeal joint osteoarthritis is seen. No evidence of radiopaque foreign body. IMPRESSION: 1. Dorsal avulsion type fractures involving the right navicular bone and the talus with associated so ft tissue swelling. 2. Small heel spur. Report Dictated By: Eladio Segura at 01/06/2019 9:41 PM Report E-Signed By: Eladio Segura at 01/06/2019 9:44 PM WSN:[id number]
--- NOTE | 2019-01-06 21:51 | RADIOLOGY IMAGING REPORT ---
FACILITY: [facility] PATIENT NAME: Coleen Wall : 1945 MR: [id number] V: [id number] EXAM DATE: ORDERING PHYSICIAN: RUBEN RUANO TECHNOLOGIST: [place] [facility] [place] Coleen Wall : 1945 Visit/Account:[id number] Date of Sevice: 01/06/2019 SHOULDER MIN 2 VIEWS LEFT Indication: Fall downstairs. Shoulder pain. Comparison: Unavailable Findings: 2 views of the left shoulder are submitted. No acute fracture or dislocation is seen on this two-view study. Appearance of the distal clavicle tubbs ggests prior partial debridement. Correlate with operative history. There are several suture anchors overlying the anterior rim of the glenoid. There are changes of glenohumeral joint osteoarthritis. IMPRESSION: 1. No acute fracture or dislocation of the left shoulder on this two-view study. 2. Osteoarthritis. 3. Postoperative changes as reported above. Report Dictated By: Eladio Segura at 01/06/2019 9:45 PM Report E-Signed By: Eladio Segura at 01/06/2019 9:47 PM WSN:[id number]
[2019-01-06] MEDS ORDERED: ONDA4TAB9 PO (21:58)
[2019-01-06] MEDS ORDERED: ONDANSETRON 4 MG ODT TH SL ONE (22:00)
== END 2019-01-06 22:05 | disposition home or self-care (01) ==
LOC: ER 20:39
DX: S92.254A Nondisplaced fracture of navicular [scaphoid] of right foot, initial encounter for closed fracture (principal); S83.91XA Sprain of unspecified site of right knee, initial encounter; S93.401A Sprain of unspecified ligament of right ankle, initial encounter; S83.92XA Sprain of unspecified site of left knee, initial encounter; S40.012A Contusion of left shoulder, initial encounter; Z79.01 Long term (current) use of anticoagulants; I48.91 Unspecified atrial fibrillation
CPT/HCPCS: 73030; 73562; 73610; 73620; 99284; A9270; L1830; L1930; Q0162; S0119

== ENCOUNTER → 2019-01-06 | Outpatient (CLI) | payer MEDICARE, OTHER ==
[~2019-01-06] MED LIST changes: +ONDA4TAB9 PO
== END ==
LOC: AMB 20:12
PROVIDERS: ATTEND Nurse Practitioner
DX: M79.661 Pain in right lower leg (principal); W19.XXXA Unspecified fall, initial encounter
CPT/HCPCS: A0425; A0429

== ENCOUNTER 2019-01-18 10:55 | Outpatient (RCR) | payer MEDICARE, OTHER ==
[2019-01-17 14:08] VITALS: BP 138/92
[2019-01-18 11:20] VITALS: BP 114/65
--- NOTE | 2019-01-18 12:55 | ONCOLOGY FOLLOW UP NOTE ---
EVENT DATE: January 18, 2019 CHIEF COMPLAINT/REASON FOR VISIT Known history of prostate carcinoma. Recent completion of external beam radiation therapy with ongoing ADT. ONCOLOGY HISTORY 1. Poorly differentiated adenocarcinoma of the prostate. Patient presenting with a [place] 4 + 5 = 9 poorly differentiated adenocarcinoma in four of 12 core biopsies. Highest volume 70%. Negative metastatic workup. 2. Prebiopsy PSA of 3.3 ng/mL on January 21, 2018. 3. Status post external beam radiation therapy with IMRT to 7,800 cGy in 42 fractions. Treatment completed on August 31, 2018. 4. Patient will continue on Lupron for a full 24 months. STAGING Stage T1c. INTERVAL HISTORY Patient was seen accompanied with his spouse for followup appointment today. Overall, he is doing exceptionally well from the prostate cancer standpoint. In fact, his voiding function has returned to normal despite having significant dysuria and overactive bladder symptoms this past year. He is now off Myrbetriq. He is also off Pyridium. He does remain on Flomax 0.4 mg b.i.d. Patient states he gets up once at night, good stream. PSA has dropped to undetectable at less than 0.06; that was drawn on January 17, 2019. Progressive fall in PSA after radiation course was completed and with ongoing Lupron. Patient states he may have one major hot flash per week or two but nothing too severe. He is scheduled for his next Lupron injection in a month with Dr. Adair's office. Patient recently had a fall down the stairs. This was about ten days ago and subsequently has avulsion fracture involving his right ankle. He has seen the orthopedic service for this. PAST MEDICAL HISTORY 1. Degenerative arthritis. 2. COPD. 3. GERD. 4. Prostate cancer with history listed above. 5. Cardiac arrhythmias. 6. Hypertension. 7. Atrial fibrillation. SURGICAL HISTORY 1. Prostate biopsy. 2. Left arm fracture in 1994. 3. Vasectomy. 4. Left shoulder surgery 1995, 2001. 5. Ankle surgery 2010. 6. Decompressive spinal surgery 2010 in [place]. 7. Prior cholecystectomy 2013. 8. Prior cataract surgery left and right eyes 2013. 9. Right anterior parathyroidectomy for hyperthyroidism, November 01, 2018 (Omer Batres Jr., MD). MEDICATIONS 1. Warfarin 5 mg a day. 2. Protonix 40 mg a day. 3. Metoprolol 25 mg p.r.n. 4. Lyrica 100 mg at bedtime. 5. Celebrex 200 mg a day. 6. Losartan 50 mg a day. 7. Allopurinol 300 mg a day. 8. Amiloride/hydrochlorothiazide 2.5/25 mg a day. 9. O2 at 2L to 3L q. night in CPAP. ALLERGIES PENICILLIN, LISINOPRIL. SOCIAL HISTORY Patient is retired. Two children, ages 35 and 38. . Smoking history: One to two packs per day for 26 years and quit in 1990. Patient previously worked 11 years on the [employer] service and 23 years with the [employer]. FAMILY HISTORY Notable for brother who had colon carcinoma at age 59. Another brother had diabetes, age 57. Mother had Alzheimer disease in her 80s. His father had Alzheimer disease in his mid 70s. REVIEW OF SYSTEMS Completed and reviewed with patient. Most notable for use of oxygen, CPAP at night at 3L. Does have problems with his balance and this is dating back to 2018. Easy bruisability from the Coumadin. Recent fall on January 06, 2019. PHYSICAL EXAMINATION GENERAL: Pleasant, 73-year-old male, medium slightly large build. VITAL SIGNS: Weight 244. BP 114/65, pulse 80, respirations 16, O2 sat 90% on room air. LYMPHATICS: No lymphadenopathy. LUNGS: Clear bilaterally. HEART: Heart sounds regular. ABDOMEN: Soft. No gross organomegaly, mass or tenderness. RECTAL: Deferred. EXTREMITIES: Orthopedic fixation boot in place. IMPRESSION Overall, I am very pleased with patient's course to date. PSA is now undetectable following combined modality therapy. His acute urinary symptom complex, frequency and urgency has completely resolved. PLAN The patient will be released from this clinic to followup with Dr. Adair. He will continue Lupron injections per schedule. I told him I would be happy to see him once he is 6 to 12 months off the hormone therapy down the road. All questions answered to his satisfaction over a 40 minute followup appointment today. Continue regular medical care with his other providers per schedule. GABO
== END 2019-02-14 13:46 | disposition home or self-care (01) ==
LOC: RAON 10:55
PROVIDERS: ATTEND Radiology Radiation Oncology
DX: C61 Malignant neoplasm of prostate (principal); Z79.818 Long term (current) use of other agents affecting estrogen receptors and estrogen levels; Z87.891 Personal history of nicotine dependence
CPT/HCPCS: 36415; 84153; 85610; G0463; 99212

== ENCOUNTER → 2019-01-18 | Outpatient (CLI) | payer MEDICARE, OTHER ==
[~2019-01-18] MED LIST changes: +ONDA4TAB9 PO
[2019-01-18 12:56] LABS: INR 1.8
== END ==
LOC: LAB 12:11
PROVIDERS: ATTEND Internal Medicine Cardiovascular Disease
DX: Z51.81 Encounter for therapeutic drug level monitoring (principal); Z79.01 Long term (current) use of anticoagulants; I48.0 Paroxysmal atrial fibrillation
CPT/HCPCS: 36415; 85610

== ENCOUNTER → 2019-02-03 | Outpatient (CLI) | payer MEDICARE, OTHER ==
[2019-02-03 12:42] LABS: INR 2.56
== END ==
LOC: LAB 12:11
PROVIDERS: ATTEND Internal Medicine Cardiovascular Disease
DX: I48.0 Paroxysmal atrial fibrillation (principal); Z79.01 Long term (current) use of anticoagulants
CPT/HCPCS: 36415; 85610

== ENCOUNTER → 2019-03-29 | Outpatient (CLI) | payer MEDICARE, OTHER ==
[2019-03-29 13:22] LABS: INR 2.29
== END ==
LOC: LAB 12:38
PROVIDERS: ATTEND Internal Medicine Cardiovascular Disease
DX: Z51.81 Encounter for therapeutic drug level monitoring (principal); I48.0 Paroxysmal atrial fibrillation; Z79.01 Long term (current) use of anticoagulants
CPT/HCPCS: 36415; 85610